=== PATIENT | male | born 1970 | race Two or more races ===

== ENCOUNTER 2021-03-18 13:59 | Inpatient (IN) ==
[2021-03-18 14:23] VITALS: BMI 30.9
[2021-03-18] MEDS ORDERED: NS 1000 ML 1,000 ML IV ONE (14:30)
--- NOTE | 2021-03-18 14:31 | DR.GENAD ---
HPI Time Seen Time Seen by Provider: 03/18/21 14:30 PCP Primary Care Physician: dewayne HPI Comment HPI Comment: Hx via friend who acts as hoop cutter; persistent cough, congestion with decrease in appetite, abd pain and diarrhea for the past week; he's now dizzy and weak and feels like he will pass out; not sure re: exposure to covid. Complaint/Symptoms Chief Complaint:: PT C/O 1 WEEK HISTORY OF DECREASED PO APPETITE, COUGHING, DIARRHEA. PT C/O FEELING DIZZY AND FEELING LIKE HE WILL PASS OUT. COVID-19 Coronavirus risk:travel/contact w/high risk person: No Has patient experienced Coronavirus symptoms: No Coronavirus symptoms experienced: Fever, Coughing and Shortness of Breath Mode of Arrival Mode of Arrival: Ambulatory Timing Onset of Chief Complaint: 03/13/21 PMH PMH Past Surgical History: No Family History History of Family Medical Conditions: No Social History Does patient currently use any type of tobacco product: No Type of Tobacco Use: None Does any household member use tobacco: No Alcohol Use: None Do you use any recreational Drugs:: No Travel Risk Coronavirus risk:travel/contact w/high risk person: No Has patient experienced Coronavirus symptoms: No Coronavirus symptoms experienced: Fever, Coughing and Shortness of Breath Infectious screening In the last 2 months have you had wt loss of >10#?: NO Have you had fever, night sweats or hemotysis?: No Have you traveled outside the country in the last 6 months?: No Isolation: Droplet ROS Review of Systems Eyes: No Symptoms Reported ENTM: No Symptoms Reported Cardiovascular: No Symptoms Reported Genitourinary: No Symptoms Reported Integumentary: No Symptoms Reported Hematologic/Lymphatic: No Symptoms Reported Endocrine: No Symptoms Reported Psychiatric: No Symptoms Reported PE Vital Signs Vitals: Temperature 100.9 F Pulse Rate 102 Respiratory Rate 26 Blood Pressure 132/86 O2 Sat by Pulse Oximetry 93 General Limitations: Language Barrier General Appearance: Alert and In No Apparent Distress Head Head Exam: Normal Inspection Eyes Eye exam: Normal Appearance ENT ENT Exam: Normal Exam External Ear Exam: Normal External Inspection TM/Canal Exam: Bilateral: Normal Nose Exam: Normal Nose Exam Mouth Exam: Normal Inspection Throat Exam: Normal Inspection Neck Neck Exam: Normal Inspection Chest Chest Inspection: Normal Inspection Respiratory Respiratory Exam: Normal Lung Sounds Bilat Respiratory Exam: Bilateral: Clear to Auscultation Cardiovascular Cardiovascular Exam: Regular Rate and Normal Rhythm Abdominal Exam Abdominal Exam: Normal Inspection, Normal Bowel Sounds, Soft and Tenderness Abdominal Tenderness: Diffuse and Mild Extremities Extremities Exam: Normal Inspection Back Back Exam: Normal Inspection Neurologic Neurological Exam: Alert and Oriented X3 Psychiatric Psychiatric Exam: Normal Affect and Normal Mood Skin Skin Exam: Warm, Dry, Intact and Normal Color MDM Differential Diagnosis Differential Diagnosis: covid, bronchitis, viral uri COURSE Treatment Treatment: not a candidate for regenCov due to crp and oxygen 53 Consultation Call Returned: 19:17 Consultation Comments: Kaylah accepts admission for Dr Guo and will put in a dmission orders ROR Labs Reviewed Laboratory Results Reviewed?: Yes Result Diagrams: 03/18/21 14:43 03/18/21 14:43 Laboratory: WBC 7.8 X10^3/uL (3.6-10.0) 03/18/21 14:43 RBC 5.11 X10^6/uL (4.7-6.0) 03/18/21 14:43 Hgb 16.1 g/dL (13.5-18.0) 03/18/21 14:43 Hct 45.8 % (42.0-54.0) 03/18/21 14:43 MCV 89.7 fL (80.0-100.0) 03/18/21 14:43 MCH 31.6 pg (27.0-34.0) 03/18/21 14:43 MCHC 35.2 g/dL (33.0-35.0) H 03/18/21 14:43 RDW 13.0 % (11.6-16.5) 03/18/21 14:43 Plt Count 144 X10^3/uL (150.0-450.0) L 03/18/21 14:43 MPV 8.8 fL (7.4-11.0) 03/18/21 14:43 Neut % (Auto) 72.1 % (42.0-75.0) 03/18/21 14:43 Lymph % (Auto) 19.1 % (21.0-51.0) L 03/18/21 14:43 Person % (Auto) 8.3 % (0.0-13.0) 03/18/21 14:43 Eos % (Auto) 0.0 % (0.9-2.9) L 03/18/21 14:43 Baso % (Auto) 0.5 % (0.2-1.0) 03/18/21 14:43 Neut # (Auto) 5.6 x10^3/uL (2.2-4.8) H 03/18/21 14:43 Lymph # (Auto) 1.5 X10^3/uL (1.3-2.9) 03/18/21 14:43 Person # (Auto) 0.6 x10^3/uL (0.3-0.8) 03/18/21 14:43 Eos # (Auto) 0.0 x10^3/uL (0.0-0.2) 03/18/21 14:43 Baso # (Auto) 0.0 X10^3/uL (0.0-0.1) 03/18/21 14:43 Absolute Nucleated RBC 0.1 /100WBC 03/18/21 14:43 D-Dimer 13.40 ug/ml (0.0-0.57) H* 03/18/21 14:43 Sample Site Lr 03/18/21 14:33 ABG pH 7.490 (7.35-7.45) H 03/18/21 14:33 ABG pCO2 38.0 mmHg (35.0-45.0) 03/18/21 14:33 ABG pO2 53.0 mmHg (80.0-100.0) L 03/18/21 14:33 ABG HCO3 29.0 mmol/L (22-26) H 03/18/21 14:33 ABG O2 Saturation 90.0 % (90-100) 03/18/21 14:33 ABG Base Excess 5.4 mmol/L (-2.0-2.0) H 03/18/21 14:33 Joe Test Pos 03/18/21 14:33 A-a Gradient 49.0 mmHg 03/18/21 14:33 FiO2 21.0 03/18/21 14:33 Blood Gas Comments Pt ivonne well llj associate professor of music 03/18/21 14:33 Sodium 134 mmol/L (136-145) L 03/18/21 14:43 Corrected Sodium 134 mmol/L (136-145) L 03/18/21 14:43 Potassium 3.4 mmol/L (3.5-5.1) L 03/18/21 14:43 Chloride 95 mmol/L (98-107) L 03/18/21 14:43 Carbon Dioxide 28.1 mmol/L (21-32) 03/18/21 14:43 BUN 16 mg/dL (7-18) 03/18/21 14:43 Creatinine 0.96 mg/dL (0.70-1.30) 03/18/21 14:43 Est GFR (MDRD) Af Amer > 60 (>60) 03/18/21 14:43 Est GFR (MDRD) Non-Af > 60 (>60) 03/18/21 14:43 Glucose 120 mg/dL (65-99) H 03/18/21 14:43 Calcium 8.3 mg/dL (8.5-10.1) L 03/18/21 14:43 Corrected Calcium 8.9 mg/dL (8.5-10.1) 03/18/21 14:43 Ferritin 1388 ng/mL (26-388) H 03/18/21 14:43 Total Bilirubin 1.00 mg/dL (0.2-1.0) 03/18/21 14:43 AST 34 Units/L (15-37) 03/18/21 14:43 ALT 44 Units/L (12-78) 03/18/21 14:43 Alkaline Phosphatase 88 Units/L (46-116) 03/18/21 14:43 C-Reactive Protein 99.30 mg/L (0-3.0) H 03/18/21 14:43 B-Natriuretic Peptide < 5.0 pg/mL (0-79) 03/18/21 14:43 Total Protein 8.0 g/dL (6.4-8.2) 03/18/21 14:43 Albumin 3.3 g/dL (3.4-5.0) L 03/18/21 14:43 Globulin 4.7 g/dL (2.5-4.5) H 03/18/21 14:43 Albumin/Globulin Ratio 0.7 Ratio (1.1-2.1) L 03/18/21 14:43 SARS CoV-2 RNA Rapid ELIZABETH Positive (NEGATIVE) A 03/18/21 14:46 XRAY XRAY Interpreted by: Radiologist X-ray Results: ct chest: 1. Motion limited study with findings suspicious for scattered small distal pulmonary emboli. Recommend repeating study when patient is better able to hold his breath. 2. Pulmonary findings typical of COVID-19. 3. Additional findings as above. cxr: No acute cardiopulmonary disease. Opioid Opioid Risk Tool Age (Ranjan box if 16-45): No History of Preadolescent Sexual Abuse: No Total: 0 Total Score Risk Category: Low Risk Copyright: [facility] predicting aberrant behaviors Diagnosis Discharge Problem: COVID-19, Hypokalemia, Bilateral pulmonary embolism Instructions Forms: Precautions for COVID19 Patient Portal Social Distancing
[2021-03-18] MEDS ORDERED: NS 1000 ML 1,000 ML ONE (14:43)
[2021-03-18 14:51] LABS: BASOPHILS % (AUTO) 0.5 % (0.2-1.0); HEMATOCRIT 45.8 % (42.0-54.0); HEMOGLOBIN 16.1 g/dL (13.5-18.0); LYMPHOCYTES # (AUTO) 1.5 X10^3/uL (1.3-2.9); LYMPHOCYTES % (AUTO) 19.1 % (21.0-51.0); MEAN CORPUSCULAR HEMOGLOBIN 31.6 pg (27.0-34.0); MEAN CORPUSCULAR HGB CONC 35.2 g/dL (33.0-35.0); MEAN CORPUSCULAR VOLUME 89.7 fL (80.0-100.0); MEAN PLATELET VOLUME 8.8 fL (7.4-11.0); MONOCYTES # (AUTO) 0.6 x10^3/uL (0.3-0.8); MONOCYTES % (AUTO) 8.3 % (0.0-13.0); NEUTROPHILS # (AUTO) 5.6 x10^3/uL (2.2-4.8); NEUTROPHILS % (AUTO) 72.1 % (42.0-75.0); PLATELET COUNT 144 X10^3/uL (150.0-450.0); RED BLOOD COUNT 5.11 X10^6/uL (4.7-6.0); WHITE BLOOD COUNT 7.8 X10^3/uL (3.6-10.0)
[2021-03-18 15:04] LABS: ABG ALLEN TEST POS; ABG BASE EXCESS 5.4 mmol/L (-2.0-2.0)
[2021-03-18 15:05] LABS: ALANINE AMINOTRANSFERASE 44 Units/L (12-78); ALBUMIN 3.3 g/dL (3.4-5.0); ALKALINE PHOSPHATASE 88 Units/L (46-116); ASPARTATE AMINO TRANSFERASE 34 Units/L (15-37); BLOOD UREA NITROGEN 16 mg/dL (7-18); CALCIUM 8.3 mg/dL (8.5-10.1); CARBON DIOXIDE 28.1 mmol/L (21-32); CHLORIDE 95 mmol/L (98-107); COR CA(FOR HYPOALB) 8.9 mg/dL (8.5-10.1); COR NA(FOR HYPERGLY) 134 mmol/L (136-145); CREATININE 0.96 mg/dL (0.70-1.30); SODIUM 134 mmol/L (136-145); eGFR NON BLACK RACES > 60 (>60)
--- NOTE | 2021-03-18 15:29 | RAD ---
HISTORYPT C/O 1 WEEK HISTORY OF DECREASED PO APPETITE, COUGHING, DIARRHEA. PT C/O FEELING DIZZY AND FEELING LIKE HE WILL PASS OUT. No medical hxSTUDYCHEST, 1 VIEWCOMPARISONNoneFINDINGSThe trachea is midline. The cardiac silhouette is unremarkable. The lungs are clear without focal infiltrate or effusion. There is mild interstitial prominence in the right lung base either atelectasis or minimal chronic changes of fibrosis but no definite infiltrates or effusions are observed. The bony thorax is unremarkable.IMPRESSIONNo acute cardiopulmonary disease.Electronically signed by: IVANIA FORBES (Mar 18, 2021 15:27:53)
[2021-03-18] MEDS ORDERED: NS 100 ML IV 100 ML ONE (16:00)
[2021-03-18] MEDS ORDERED: SOLU-Medrol 125 MG VIAL IVP ONE (16:06)
--- NOTE | 2021-03-18 16:20 | CT ---
HISTORYCOVID POSITIVE, COUGH, ELEVATED D DIMERSTUDYCTA [id number]/2021 chest radiographTECHNIQUEMultiple axial images of the chest were obtained from the thoracic inlet to the upper abdomen after the administration of IV contrast. 3D reconstructions utilizing axial MIPS imaging was performed and reviewed. Dose reduction techniques including Automated Exposure Control (AEC) and adjustment of mA and kV were utilized.FINDINGSExam is limited by respiratory motion. No central or proximal pulmonary artery filling defects are seen however there are a few small branch filling defects in the lower lobes greater than expected for the degree of motion suspicious for small emboli. Mild right hilar lymphadenopathy is present. The lungs show multifocal ground-glass opacities typical of COVID-19. No pleural or pericardial effusion or pneumothorax. Limited views upper abdomen show subcentimeter left hepatic lobe hypodensity incompletely characterized but probably cyst. No acute osseous finding.IMPRESSION1. Motion limited study with findings suspicious for scattered small distal pulmonary emboli. Recommend repeating study when patient is better able to hold his breath.2. Pulmonary findings typical of COVID-19.3. Additional findings as above.Electronically signed by: Rubens Mari (Mar 18, 2021 16:18:24)
[2021-03-18] MEDS ORDERED: ZITHROMAX INJ 500 MG VIAL IV ONE (16:29)
[2021-03-18] MEDS ORDERED: NS 250 ML IV 250 ML IV ONE ×2 (16:29→20:29)
[2021-03-18] MEDS ORDERED: SOLU-Medrol 125 MG VIAL ONE (16:29)
[2021-03-18] MEDS: ZITHROMAX INJ 500 MG VIAL 500 MG in NS 250 ML IV 250 ML IV SCH (16:41)
[2021-03-18] MEDS ORDERED: LOVENOX INJ 120 MG SYR SC STA (17:26)
[2021-03-18] MEDS ORDERED: LOVENOX INJ 120 MG SYR SC ONE (17:58)
[2021-03-18] MEDS ORDERED: TUSSIONEX PENNKINETIC SUSP PO PRN (20:02)
[2021-03-18] MEDS ORDERED: HumuLIN R SUBCUT PRN (20:02)
[2021-03-18] MEDS ORDERED: ROBITUSSIN DM PO PRN (20:02)
[2021-03-18] MEDS ORDERED: REMDESIVIR 200 MG in NS 250 ML IV 250 ML IV ONE (20:02)
[2021-03-18] MEDS ORDERED: HEPARIN SODIUM IN D5W 25,000 UNITS/500 ML BAG ONE (20:04)
[2021-03-18] MEDS: HEPARIN SODIUM IN D5W 25,000 UNITS/500 ML BAG IV PRN (20:16)
[2021-03-18] MEDS ORDERED: ACCUNEB 1.25 MG NEBULE ONE (20:25)
[2021-03-18] MEDS ORDERED: PULMICORT NEB TX 0.5 MG NEB ONE (20:25)
[2021-03-18] MEDS ORDERED: BROVANA ONE (20:25)
[2021-03-18] MEDS ORDERED: THIAMINE HCL INJ ONE (20:28)
[2021-03-18] MEDS ORDERED: PROTONIX TAB 40 MG PO ONE (20:28)
[2021-03-18] MEDS ORDERED: LIPITOR TAB 80 MG ONE (20:28)
[2021-03-18] MEDS ORDERED: FLUVOXAMINE MALEATE ONE (20:29)
[2021-03-18] MEDS ORDERED: SOLU-Medrol 40 MG VIAL ONE (20:29)
[2021-03-18] MEDS ORDERED: PEPCID TAB 40 MG ONE (20:29)
[2021-03-18] MEDS ORDERED: REMDESIVIR IV ONE (20:29)
[2021-03-18] MEDS ORDERED: TESSALON PERLES PO ONE (20:29)
[2021-03-18] MEDS ORDERED: ASCORBIC ACID INJ MULTI-DOSE VIAL IV ONE (20:30)
[2021-03-18] MEDS ORDERED: NS 50 ML IV 50 ML IV ONE (20:30)
[2021-03-18] MEDS ORDERED: NS 1/2 1000 ML IV 1,000 ML IV ONE (20:30)
[2021-03-18 20:54] LABS: ERYTHROCYTE SEDIMENTATION RATE 27 MM/HOUR (0-15)
[2021-03-18] MEDS: BROVANA IN SCH (21:00)
[2021-03-18] MEDS ORDERED: PHARMACY CONSULT - IVERMECTIN XX SCH (21:00)
[2021-03-18] MEDS: ACCUNEB 1.25 MG NEBULE NEB SCH (21:00)
[2021-03-18] MEDS: PULMICORT NEB TX 0.5 MG NEB SCH (21:00)
[2021-03-18] MEDS ORDERED: PERIACTIN TAB 4 MG ONE (21:18)
[2021-03-18 21:22] LABS: CKMB % 0.1 % (<4); CREATINE KINASE 713 Units/L (39-308); TROPONIN I < 0.02 ng/mL (0-1.5)
[2021-03-18] MEDS: PERIACTIN TAB 4 MG PO SCH (22:22)
[2021-03-18] MEDS: SOLU-Medrol 40 MG VIAL IVP SCH (22:22)
[2021-03-18] MEDS: TESSALON PERLES PO SCH (22:22)
[2021-03-18] MEDS: ASCORBIC ACID INJ MULTI-DOSE VIAL 1,500 MG in NS 50 ML IV 50 ML IV SCH (22:22)
[2021-03-18] MEDS: SINGULAIR TAB 10 MG PO SCH (22:23)
[2021-03-18] MEDS: PEPCID TAB 40 MG PO SCH (22:23)
[2021-03-18] MEDS: THIAMINE HCL INJ IVP SCH (22:23)
[2021-03-18] MEDS: PROTONIX TAB 40 MG PO SCH (22:23)
[2021-03-18] MEDS: NS 1/2 1000 ML IV 1,000 ML IV SCH (22:24)
[2021-03-18] MEDS: MELATONIN PO SCH (22:24)
[2021-03-18] MEDS: LIPITOR TAB 80 MG PO SCH (22:24)
[2021-03-18] MEDS: FLUVOXAMINE MALEATE PO SCH (22:25)
[2021-03-18] MEDS ORDERED: LOVENOX INJ 30 MG SYR SC ONE (22:35)
[2021-03-19] MEDS: IVERMECTIN PO SCH ×2 (00:30→21:45)
[2021-03-19] MEDS: ASCORBIC ACID INJ MULTI-DOSE VIAL 1,500 MG in NS 50 ML IV 50 ML IV SCH ×4 (03:00→21:49)
[2021-03-19] MEDS ORDERED: TESSALON PERLES PO ONE ×3 (03:51→19:55)
[2021-03-19] MEDS ORDERED: SOLU-Medrol 40 MG VIAL ONE ×4 (03:52→19:58)
[2021-03-19] MEDS ORDERED: NS 50 ML IV 50 ML IV ONE (03:52)
[2021-03-19] MEDS ORDERED: ASCORBIC ACID INJ MULTI-DOSE VIAL IV ONE ×3 (03:53→12:41)
[2021-03-19] MEDS: TESSALON PERLES PO SCH ×3 (05:19→21:48)
[2021-03-19] MEDS: SOLU-Medrol 40 MG VIAL IVP SCH ×3 (05:19→21:48)
[2021-03-19] MEDS: PERIACTIN TAB 4 MG PO SCH ×3 (05:20→21:48)
[2021-03-19 05:55] LABS: ABG BASE EXCESS 3.2 mmol/L (-2.0-2.0); ABG HCO3 27.9 mmol/L (22-26)
[2021-03-19 06:19] LABS: BASOPHILS % (AUTO) 0.2 % (0.2-1.0); HEMATOCRIT 42.6 % (42.0-54.0); HEMOGLOBIN 15.1 g/dL (13.5-18.0); LYMPHOCYTES # (AUTO) 1.2 X10^3/uL (1.3-2.9); LYMPHOCYTES % (AUTO) 16.6 % (21.0-51.0); MEAN CORPUSCULAR HEMOGLOBIN 31.4 pg (27.0-34.0); MEAN CORPUSCULAR HGB CONC 35.4 g/dL (33.0-35.0); MEAN CORPUSCULAR VOLUME 88.5 fL (80.0-100.0); MEAN PLATELET VOLUME 9.5 fL (7.4-11.0); MONOCYTES # (AUTO) 0.3 x10^3/uL (0.3-0.8); MONOCYTES % (AUTO) 3.6 % (0.0-13.0); NEUTROPHILS # (AUTO) 5.8 x10^3/uL (2.2-4.8); NEUTROPHILS % (AUTO) 79.6 % (42.0-75.0); PLATELET COUNT 143 X10^3/uL (150.0-450.0); RED BLOOD COUNT 4.81 X10^6/uL (4.7-6.0); RED CELL DISTRIBUTION WIDTH 12.9 % (11.6-16.5); WHITE BLOOD COUNT 7.3 X10^3/uL (3.6-10.0)
[2021-03-19 06:27] LABS: ALANINE AMINOTRANSFERASE 41 Units/L (12-78); ALBUMIN 2.8 g/dL (3.4-5.0); ALKALINE PHOSPHATASE 75 Units/L (46-116); ASPARTATE AMINO TRANSFERASE 32 Units/L (15-37); BLOOD UREA NITROGEN 16 mg/dL (7-18); CALCIUM 7.9 mg/dL (8.5-10.1); CARBON DIOXIDE 28.1 mmol/L (21-32); CHLORIDE 101 mmol/L (98-107); COR CA(FOR HYPOALB) 8.9 mg/dL (8.5-10.1); COR NA(FOR HYPERGLY) 139 mmol/L (136-145); CREATININE 0.77 mg/dL (0.70-1.30); SODIUM 138 mmol/L (136-145); TOTAL PROTEIN 7.1 g/dL (6.4-8.2); eGFR NON BLACK RACES > 60 (>60)
--- NOTE | 2021-03-19 07:02 | RAD ---
HISTORYCOVID SOBSTUDYPortable AP [id number]/28/2021FINDINGSStable normal heart size. There is slight interval progression of diffuse bilateral infiltrates without evidence for focal consolidation, pleural fluid or pneumothorax.IMPRESSIONSlight interval increase in bilateral infiltrates compatible with atypical pneumonia pattern.Electronically signed by: CHAYA RÍOS (Mar 19, 2021 07:00:15)
[2021-03-19] MEDS ORDERED: PEPCID TAB 40 MG ONE ×2 (07:41→19:55)
[2021-03-19] MEDS ORDERED: VITAMIN D3 125 mcg (5,000 UNITS) ONE (07:41)
[2021-03-19] MEDS ORDERED: FLUVOXAMINE MALEATE ONE ×2 (07:41→19:55)
[2021-03-19] MEDS ORDERED: PROTONIX TAB 40 MG PO ONE ×2 (07:41→19:54)
[2021-03-19] MEDS ORDERED: ZyrTEC TAB 10 MG ONE (07:41)
[2021-03-19] MEDS ORDERED: THIAMINE HCL INJ ONE ×2 (07:41→19:54)
[2021-03-19] MEDS ORDERED: ZINC SULFATE ONE (07:41)
[2021-03-19] MEDS ORDERED: NS 100 ML IV 100 ML ONE ×2 (07:42→12:41)
[2021-03-19] MEDS ORDERED: LEVAQUIN PREMIX IV 500 MG 500 MG/100 ML BAG IV ONE (07:42)
[2021-03-19] MEDS: FLUVOXAMINE MALEATE PO SCH ×2 (08:41→21:46)
[2021-03-19] MEDS: AVODART PO SCH (08:41)
[2021-03-19] MEDS: LEVAQUIN PREMIX IV 500 MG 500 MG/100 ML BAG IV SCH (08:42)
[2021-03-19] MEDS: PEPCID TAB 40 MG PO SCH ×2 (08:42→21:47)
[2021-03-19] MEDS: PROTONIX TAB 40 MG PO SCH ×2 (08:42→21:45)
[2021-03-19] MEDS: THIAMINE HCL INJ IVP SCH ×2 (08:43→21:45)
[2021-03-19] MEDS: VITAMIN D3 125 mcg (5,000 UNITS) PO SCH (08:44)
[2021-03-19] MEDS: ZyrTEC TAB 10 MG PO SCH (08:45)
[2021-03-19] MEDS: ZINC SULFATE PO SCH (08:45)
[2021-03-19] MEDS ORDERED: POTASSIUM CHL 40 MEQ/NS 0.45% 500 ML IV PRN (08:48)
[2021-03-19] MEDS ORDERED: POTASSIUM CHLORIDE LIQ 20 MEQ UDC PO PRN (08:48)
[2021-03-19] MEDS ORDERED: KLOR-CON PO PRN (08:48)
[2021-03-19] MEDS ORDERED: MICRO K EXTEN CAP 10 MEQ PO PRN (08:48)
[2021-03-19] MEDS ORDERED: K-RIDER 10 MEQ/NS 100 ML 10 MEQ/100 ML BAG IV PRN (08:48)
[2021-03-19] MEDS ORDERED: POTASSIUM CHL 60 MEQ/NS 0.45% 500 ML IV PRN (08:48)
[2021-03-19] MEDS ORDERED: K-DUR TAB 20 MEQ PO ONE (09:17)
[2021-03-19] MEDS: BROVANA IN SCH ×2 (09:34→20:46)
[2021-03-19] MEDS: PULMICORT NEB TX 0.5 MG NEB SCH ×2 (09:34→20:46)
[2021-03-19] MEDS: ACCUNEB 1.25 MG NEBULE NEB SCH (09:34)
[2021-03-19] MEDS: K-DUR TAB 20 MEQ PO PRN (09:52)
[2021-03-19] MEDS: NS 1/2 1000 ML IV 1,000 ML IV SCH ×3 (10:11→23:46)
[2021-03-19] MEDS ORDERED: REMDESIVIR 100 MG in NS 100 ML IV + SPIKE MINIBAG* 120 ML IV ONE (10:57)
[2021-03-19] MEDS ORDERED: REMDESIVIR IV ONE ×2 (11:15→19:56)
[2021-03-19] MEDS ORDERED: NS 250 ML IV 0 ML IV ONE (11:16)
--- NOTE | 2021-03-19 11:47 | DR.H&P ---
H&P - History & Physical for Day of: H&P Date: 03/18/21 - Chief Complaint Chief Complaint: COUGH, SOB, ABDOMINAL PAIN, DIARRHEA, WEAKNESS, DIZZINESS - History of Present Illness History of Present Illness: IS A 51 YEAR OLD MALE. HE HAS AN AIRPLANE PILOT IN THE ROOM. HE PRESENTED TO THE ER WITH COMPLAINTS OF A NON- PRODUCTIVE COUGH, SHORTNESS OF BREATH, ABDOMINAL PAIN, DIARRHEA, WEAKNESS, DECREASED APPETITE, AND DIZZINESS X 1 WEEK. HE REPORTS THAT HE HAS NO PAST MEDICAL HISTORY THAT HE IS AWARE OF AND DOES NOT TAKE ANY MEDICATIONS. AUSCULTATION OF BILATERAL LUNG RUIZ REVEALED DIMINISHED LUNG SOUNDS THROUGHOUT. ON ARRIVAL TO THE ER, VITALS WERE [id number]-131/89. LABS WERE OBTAINED. ABNORMAL LAB VALUES INCLUDED THE FOLLOWING: PLT COUNT 144, D- DIMER 13.40, SODIUM 134, POTASSIUM 3.4, CHLORIDE 95, GLUCOSE 120, CALCIUM 8.3, FERRITIN 1388, ALBUMIN 3.3, GLOBULIN 4.7, CRP 99.30. COVID-19 POSITIVE. AN ABG WAS OBTAINED AND REVEALED: PH 7.490, PC02 38, P02 53, HC03 29, 02 SATURATION 90, BASE EXCESS 5.4, A-A GRADIENT 49, FI02 21.0. BLOOD CULTURES WERE SET UP. CHEST XRAY WAS OBTAINED AND REVEALED: The trachea is midline. The cardiac silhouette is unremarkable. The lungs are clear without focal infiltrate or effusion. There is mild interstitial prominence in the right lung base either atelectasis or minimal chronic changes of fibrosis but no definite infiltrates or effusions are observed. The bony thorax is unremarkable. CHEST CTA OBTAINED AND REVEALED: No central or proximal pulmonary artery filling defects are seen however there are a few small branch filling defects in the lower lobes greater than expected for the degree of motion suspicious for small emboli. Mild right hilar lymphadenopathy is present. The lungs show multifocal ground-glass opacities typical of COVID-19. No pleural or pericardial effusion or pneumothorax. Limited views upper abdomen show subcentimeter left hepatic lobe hypodensity incompletely characterized but probably cyst. No acute osseous finding. EKG REVEALED: SINUS RHYTHM WITH HR 84. IN THE ER, HE WAS GIVEN A NORMAL SALINE BOLUS, ZOSYN 3.375G IV X 1, SOLU-MEDROL 125MG IV X 1, LOVENOX 120MG SC X 1, REMDESIVIR 200MG IV X 1. HE WAS ADMITTED TO THE HOSPITAL FOR FURTHER EVALUATION AND TREATMENT OF PNEUMONIA DUE TO COVID-19, BILATERAL PULMONARY EMBOLI, HYPOKALEMIA, AND HYPOXIA. HE WAS STARTED ON NS AT 75 ML/HR, HEPERIN DRIP PER PROTOCOL, LEVAQUIN 500MG IV DAILY, REMDESIVIR 100MG IV DAILY, ASCORBIC ACID 1500MG IV Q6H, ALBUTEROL NEBS QID, PULMICORT NEBS BID, BROVANA INHALER BID, SOLU-MEDROL 80MG IV Q8H, FLUVOXAMINE 50MG PO BID, AVODART 0.5MG PO DAILY, CYPROHEPTADINE 8MG PO TID, LIPITOR 80MG PO HS, TESSALON PERLES 200MG PO TID, TUSSIONEX 5ML PO Q12H PRN, CETIRIZINE 10MG PO DAILY, IVERMECTIN, PEPCID 40MG PO BID, ROBITUSSIN DM 10ML PO QID PRN, HUMULIN R SLIDING SCALE, SINGULAIR 10MG PO HS, PROTONIX 40MG PO BID, MILK OF MAGNESIA 30ML PO BID, COLACE 100MG PO BID, THIAMINE 200MG IV BID, AND ZINC SULFATE 220MG PO BID. OTHERWISE, WE PLAN TO FOLLOW UP WITH AM LABS AND CHEST XRAY AND CONTINUE TO MONITOR. WE WILL ALSO OBTAIN AN ECHO. TIME SPENT ON CLINICAL ASSESSMENT, REVIEWING LABS AND IMAGING, DECISION MAKING, AND DOCUMENTATION GREATER THAN 75 MINUTES. - Past Surgical History Surgical History: Unknown - Social History Does patient currently use any type of tobacco product: No Type of Tobacco Use: None Does any household member use tobacco: No Alcohol Use: None Drug Use: None - Medications Home Medications: No Known Drug Allergies Allergy (Verified 03/18/21 14:57) CONTINUE taking the following medications NK 03/18/21 [History] - Review of Systems Constitutional: Fever, Weakness, Malaise, Other (DECREASED APPETITE ) Eyes: No Symptoms Reported ENT: No Symptoms Reported Respiratory: See HPI, Cough, Shortness of Breath, SOB with Excertion Cardiovascular: Light Headedness Gastrointestinal: Abdominal Pain, Diarrhea Genitourinary: No Symptoms Reported Musculoskeletal: No Symptoms Reported Skin: No Symptoms Reported Neurological: Weakness - Physical Exam Vital Signs: Temperature 98.1 F Pulse Rate [Left Brachial] 106 Pulse Rate 75 Respiratory Rate 20 Blood Pressure [Left Arm] 123/76 Blood Pressure 111/70 O2 Sat by Pulse Oximetry 92 Oriented: Normal Eyes: Normal Ear: Normal Nose: Normal Throat: Normal Respiratory: Diminished Throughout Cardiovascular: Tachycardia : Normal Auscultation: Bowel Sounds: Normal Palpation: Normal Tenderness: Normal Skin: Normal Musculoskeletal: Normal Psychiatric: Normal Mood Description: Calm Affect: Normal Speech Pattern: Clear - Assessment/Plan (1) Pneumonia due to COVID-19 virus Status: Acute Plan: ADMIT, SUPPLEMENTAL OXYGEN, NS AT 75 ML/HR, HEPERIN DRIP PER PROTOCOL, LEVAQUIN 500MG IV DAILY, REMDESIVIR 100MG IV DAILY, ASCORBIC ACID 1500MG IV Q6H, ALBUTEROL NEBS QID, PULMICORT NEBS BID, BROVANA INHALER BID, SOLU-MEDROL 80MG IV Q8H, FLUVOXAMINE 50MG PO BID, AVODART 0.5MG PO DAILY, CYPROHEPTADINE 8MG PO TID, LIPITOR 80MG PO HS, TESSALON PERLES 200MG PO TID, TUSSIONEX 5ML PO Q12H PRN, CETIRIZINE 10MG PO DAILY, IVERMECTIN, PEPCID 40MG PO BID, ROBITUSSIN DM 10ML PO QID PRN, HUMULIN R SLIDING SCALE, SINGULAIR 10MG PO HS, PROTONIX 40MG PO BID, MILK OF MAGNESIA 30ML PO BID, COLACE 100MG PO BID, THIAMINE 200MG IV BID, AND ZINC SULFATE 220MG PO BID. (2) Bilateral pulmonary embolism Status: Acute (3) Hypoxia Status: Acute (4) Hypokalemia Status: Acute - Allergies Allergies/Adverse Reactions: Allergies Allergy/AdvReac Type Severity Reaction Status Date / Time No Known Drug Allergies Allergy Verified 03/18/21 14:57
[2021-03-19] MEDS ORDERED: PERIACTIN TAB 4 MG ONE ×2 (12:41→19:55)
[2021-03-19] MEDS ORDERED: ZITHROMAX INJ 500 MG VIAL IV ONE (14:53)
[2021-03-19] MEDS ORDERED: NS 250 ML IV 250 ML IV ONE (14:53)
[2021-03-19] MEDS: ZITHROMAX INJ 500 MG VIAL 500 MG in NS 250 ML IV 250 ML IV SCH (15:33)
[2021-03-19 16:45] LABS: MAGNESIUM 2.4 mg/dL (1.7-2.9)
[2021-03-19] MEDS ORDERED: IVERMECTIN ONE (19:54)
[2021-03-19] MEDS ORDERED: MELATONIN ONE (19:55)
[2021-03-19] MEDS ORDERED: LIPITOR TAB 80 MG ONE (19:55)
[2021-03-19] MEDS ORDERED: NS 100 ML IV + SPIKE MINIBAG* 100 ML IV ONE (19:56)
[2021-03-19] MEDS ORDERED: NS 1/2 1000 ML IV 1,000 ML IV ONE (21:19)
[2021-03-19] MEDS: LIPITOR TAB 80 MG PO SCH (21:46)
[2021-03-19] MEDS: MELATONIN PO SCH (21:47)
[2021-03-19] MEDS: REMDESIVIR 100 MG in NS 250 ML IV 250 ML IV SCH (21:48)
[2021-03-19] MEDS: SNACK - Diabetic Appropriate PO SCH (21:49)
[2021-03-19] MEDS: SINGULAIR TAB 10 MG PO SCH (21:49)
[2021-03-20] MEDS ORDERED: NS 100 ML IV 100 ML ONE (02:57)
[2021-03-20] MEDS ORDERED: ASCORBIC ACID INJ MULTI-DOSE VIAL IV ONE ×4 (02:57→21:53)
[2021-03-20] MEDS: ASCORBIC ACID INJ MULTI-DOSE VIAL 1,500 MG in NS 50 ML IV 50 ML IV SCH ×5 (03:19→22:12)
[2021-03-20] MEDS ORDERED: TESSALON PERLES PO ONE ×3 (05:05→21:47)
[2021-03-20] MEDS ORDERED: SOLU-Medrol 125 MG VIAL ONE (05:05)
[2021-03-20] MEDS ORDERED: PERIACTIN TAB 4 MG ONE ×2 (05:05→21:47)
[2021-03-20] MEDS ORDERED: HEPARIN SODIUM IN D5W 25,000 UNITS/500 ML BAG ONE (05:15)
[2021-03-20] MEDS: TESSALON PERLES PO SCH ×3 (05:34→22:17)
[2021-03-20] MEDS: PERIACTIN TAB 4 MG PO SCH ×3 (05:34→22:17)
[2021-03-20] MEDS: HEPARIN SODIUM IN D5W 25,000 UNITS/500 ML BAG IV PRN ×3 (05:35→14:46)
[2021-03-20] MEDS: SOLU-Medrol 40 MG VIAL IVP SCH (05:36)
[2021-03-20 05:54] LABS: ABG ALLEN TEST POS; ABG BASE EXCESS 5.9 mmol/L (-2.0-2.0); ABG HCO3 29.7 mmol/L (22-26)
[2021-03-20 07:11] LABS: ALANINE AMINOTRANSFERASE 43 Units/L (12-78); ALBUMIN 2.5 g/dL (3.4-5.0); ALKALINE PHOSPHATASE 68 Units/L (46-116); ASPARTATE AMINO TRANSFERASE 27 Units/L (15-37); BLOOD UREA NITROGEN 16 mg/dL (7-18); CALCIUM 7.6 mg/dL (8.5-10.1); CARBON DIOXIDE 30.2 mmol/L (21-32); CHLORIDE 106 mmol/L (98-107); COR CA(FOR HYPOALB) 8.8 mg/dL (8.5-10.1); COR NA(FOR HYPERGLY) 145 mmol/L (136-145); CREATININE 0.77 mg/dL (0.70-1.30); SODIUM 144 mmol/L (136-145); TOTAL PROTEIN 6.3 g/dL (6.4-8.2); eGFR NON BLACK RACES > 60 (>60)
[2021-03-20 07:25] LABS: BASOPHILS % (AUTO) 0.1 % (0.2-1.0); HEMATOCRIT 40.9 % (42.0-54.0); HEMOGLOBIN 14.2 g/dL (13.5-18.0); LYMPHOCYTES # (AUTO) 1.5 X10^3/uL (1.3-2.9); LYMPHOCYTES % (AUTO) 8.1 % (21.0-51.0); MEAN CORPUSCULAR HEMOGLOBIN 31.3 pg (27.0-34.0); MEAN CORPUSCULAR HGB CONC 34.8 g/dL (33.0-35.0); MEAN CORPUSCULAR VOLUME 89.9 fL (80.0-100.0); MEAN PLATELET VOLUME 9.8 fL (7.4-11.0); MONOCYTES # (AUTO) 0.9 x10^3/uL (0.3-0.8); NEUTROPHILS # (AUTO) 15.8 x10^3/uL (2.2-4.8); NEUTROPHILS % (AUTO) 86.8 % (42.0-75.0); PLATELET COUNT 169 X10^3/uL (150.0-450.0); RED BLOOD COUNT 4.55 X10^6/uL (4.7-6.0); RED CELL DISTRIBUTION WIDTH 12.9 % (11.6-16.5); WHITE BLOOD COUNT 18.2 X10^3/uL (3.6-10.0)
--- NOTE | 2021-03-20 08:10 | RAD ---
HISTORYSOB Relevant Clinical InformationSTUDYCHEST, 1 [id number]/2021FINDINGSThe trachea is midline. There is stable mild cardiomegaly. There is again seen patchy and interstitial alveolar radiopacities involving both lungs more prominent in the left lower lobeThere is no evidence of subcutaneous emphysema or pneumothorax. No pleural effusions.IMPRESSIONStable patchy ground-glass and alveolar radiopacities involving the periphery of the lungs and the left lower lobe.Electronically signed by: Scarlet Hussein (Mar 20, 2021 08:08:02)
[2021-03-20] MEDS ORDERED: ZyrTEC TAB 10 MG ONE (08:25)
[2021-03-20] MEDS ORDERED: HEPARIN SODIUM INJ 5000 UNITS ONE (08:25)
[2021-03-20] MEDS ORDERED: VITAMIN D3 125 mcg (5,000 UNITS) ONE (08:25)
[2021-03-20] MEDS ORDERED: PEPCID TAB 40 MG ONE (08:25)
[2021-03-20] MEDS ORDERED: ZINC SULFATE ONE (08:25)
[2021-03-20] MEDS ORDERED: LEVAQUIN PREMIX IV 500 MG 500 MG/100 ML BAG IV ONE (08:25)
[2021-03-20] MEDS ORDERED: PROTONIX TAB 40 MG PO ONE ×2 (08:25→22:19)
[2021-03-20] MEDS ORDERED: AVODART PO ONE (08:25)
[2021-03-20] MEDS ORDERED: FLUVOXAMINE MALEATE ONE ×2 (08:25→21:52)
[2021-03-20] MEDS ORDERED: NS 50 ML IV 50 ML IV ONE ×3 (08:26→21:52)
[2021-03-20] MEDS: LEVAQUIN PREMIX IV 500 MG 500 MG/100 ML BAG IV SCH (08:31)
[2021-03-20] MEDS: ZyrTEC TAB 10 MG PO SCH (08:35)
[2021-03-20] MEDS: ZINC SULFATE PO SCH (08:35)
[2021-03-20] MEDS: PEPCID TAB 40 MG PO SCH ×3 (08:36→22:16)
[2021-03-20] MEDS: AVODART PO SCH (08:36)
[2021-03-20] MEDS: VITAMIN D3 125 mcg (5,000 UNITS) PO SCH (08:36)
[2021-03-20] MEDS: PROTONIX TAB 40 MG PO SCH ×2 (08:37→22:20)
[2021-03-20] MEDS: FLUVOXAMINE MALEATE PO SCH ×2 (08:37→22:13)
[2021-03-20] MEDS ORDERED: HEPARIN SODIUM INJ 5000 UNITS IVP ONE (08:38)
[2021-03-20] MEDS: PULMICORT NEB TX 0.5 MG NEB SCH ×2 (08:42→21:55)
[2021-03-20] MEDS ORDERED: THIAMINE HCL INJ ONE ×2 (08:42→21:46)
[2021-03-20] MEDS: BROVANA IN SCH ×2 (08:42→21:55)
[2021-03-20] MEDS: THIAMINE HCL INJ IVP SCH ×2 (08:43→22:15)
[2021-03-20] MEDS: ACCUNEB 1.25 MG NEBULE NEB SCH ×3 (11:46→21:55)
[2021-03-20] MEDS: NS 1/2 1000 ML IV 1,000 ML IV SCH ×2 (12:05→14:28)
[2021-03-20] MEDS ORDERED: K-DUR TAB 20 MEQ PO ONE (12:27)
[2021-03-20] MEDS: K-DUR TAB 20 MEQ PO PRN (12:28)
[2021-03-20] MEDS ORDERED: NS 250 ML IV 250 ML IV ONE ×2 (13:50→21:47)
[2021-03-20] MEDS ORDERED: ZITHROMAX INJ 500 MG VIAL IV ONE (13:50)
[2021-03-20] MEDS ORDERED: SOLU-Medrol 40 MG VIAL ONE ×2 (13:50→21:47)
[2021-03-20] MEDS ORDERED: NS 1/2 1000 ML IV 1,000 ML IV ONE (13:51)
[2021-03-20] MEDS: SOLU-Medrol 125 MG VIAL IVP SCH ×2 (14:42→22:17)
[2021-03-20] MEDS: ZITHROMAX INJ 500 MG VIAL 500 MG in NS 250 ML IV 250 ML IV SCH (17:42)
[2021-03-20] MEDS ORDERED: LIPITOR TAB 80 MG ONE (21:46)
[2021-03-20] MEDS ORDERED: MELATONIN ONE (21:46)
[2021-03-20] MEDS ORDERED: PEPCID TAB 20 MG ONE (21:46)
[2021-03-20] MEDS ORDERED: REMDESIVIR IV ONE (21:47)
[2021-03-20] MEDS: SNACK - Diabetic Appropriate PO SCH (22:12)
[2021-03-20] MEDS: MELATONIN PO SCH (22:13)
[2021-03-20] MEDS: LIPITOR TAB 80 MG PO SCH (22:13)
[2021-03-20] MEDS: REMDESIVIR 100 MG in NS 250 ML IV 250 ML IV SCH (22:14)
[2021-03-20] MEDS: SINGULAIR TAB 10 MG PO SCH (22:15)
[2021-03-20] MEDS ORDERED: IVERMECTIN ONE (22:20)
[2021-03-20] MEDS: IVERMECTIN PO SCH (22:20)
[2021-03-21] MEDS ORDERED: ASCORBIC ACID INJ MULTI-DOSE VIAL IV ONE ×4 (02:01→19:46)
[2021-03-21] MEDS ORDERED: NS 50 ML IV 50 ML IV ONE ×4 (02:01→19:46)
[2021-03-21] MEDS: ASCORBIC ACID INJ MULTI-DOSE VIAL 1,500 MG in NS 50 ML IV 50 ML IV SCH ×4 (03:00→21:51)
[2021-03-21] MEDS ORDERED: SOLU-Medrol 40 MG VIAL ONE ×3 (04:25→19:46)
[2021-03-21] MEDS ORDERED: TESSALON PERLES PO ONE ×3 (04:25→19:45)
[2021-03-21] MEDS ORDERED: PERIACTIN TAB 4 MG ONE ×3 (04:25→19:46)
[2021-03-21 05:46] LABS: BASOPHILS % (AUTO) 0.1 % (0.2-1.0); HEMATOCRIT 38.1 % (42.0-54.0); HEMOGLOBIN 13.1 g/dL (13.5-18.0); LYMPHOCYTES % (AUTO) 5.6 % (21.0-51.0); MEAN CORPUSCULAR HEMOGLOBIN 30.9 pg (27.0-34.0); MEAN CORPUSCULAR HGB CONC 34.5 g/dL (33.0-35.0); MEAN CORPUSCULAR VOLUME 89.7 fL (80.0-100.0); MEAN PLATELET VOLUME 9.8 fL (7.4-11.0); MONOCYTES % (AUTO) 5.7 % (0.0-13.0); NEUTROPHILS # (AUTO) 15.1 x10^3/uL (2.2-4.8); NEUTROPHILS % (AUTO) 88.6 % (42.0-75.0); PLATELET COUNT 177 X10^3/uL (150.0-450.0); RED BLOOD COUNT 4.25 X10^6/uL (4.7-6.0); RED CELL DISTRIBUTION WIDTH 13.1 % (11.6-16.5); WHITE BLOOD COUNT 17.1 X10^3/uL (3.6-10.0)
[2021-03-21] MEDS: SOLU-Medrol 125 MG VIAL IVP SCH ×4 (05:50→21:55)
[2021-03-21] MEDS: TESSALON PERLES PO SCH ×3 (05:50→21:51)
[2021-03-21 05:52] LABS: ALANINE AMINOTRANSFERASE 44 Units/L (12-78); ALBUMIN 2.3 g/dL (3.4-5.0); ALKALINE PHOSPHATASE 62 Units/L (46-116); ASPARTATE AMINO TRANSFERASE 25 Units/L (15-37); BLOOD UREA NITROGEN 12 mg/dL (7-18); CALCIUM 7.6 mg/dL (8.5-10.1); CARBON DIOXIDE 32.5 mmol/L (21-32); CHLORIDE 105 mmol/L (98-107); COR NA(FOR HYPERGLY) 145 mmol/L (136-145); CREATININE 0.83 mg/dL (0.70-1.30); SODIUM 143 mmol/L (136-145); TOTAL PROTEIN 5.7 g/dL (6.4-8.2); eGFR NON BLACK RACES > 60 (>60)
[2021-03-21] MEDS: PERIACTIN TAB 4 MG PO SCH ×3 (05:53→21:51)
[2021-03-21] MEDS: ACCUNEB 1.25 MG NEBULE NEB SCH ×3 (06:22→21:10)
[2021-03-21 06:24] LABS: ABG BASE EXCESS 9.3 mmol/L (-2.0-2.0)
[2021-03-21 06:25] LABS: ABG ALLEN TEST POS; ABG HCO3 33.5 mmol/L (22-26)
[2021-03-21] MEDS ORDERED: ZyrTEC TAB 10 MG ONE (07:53)
[2021-03-21] MEDS ORDERED: FLUVOXAMINE MALEATE ONE ×2 (07:53→19:45)
[2021-03-21] MEDS ORDERED: THIAMINE HCL INJ ONE ×2 (07:53→19:45)
[2021-03-21] MEDS ORDERED: PROTONIX TAB 40 MG PO ONE ×2 (07:53→19:44)
[2021-03-21] MEDS ORDERED: VITAMIN D3 125 mcg (5,000 UNITS) ONE (07:53)
[2021-03-21] MEDS ORDERED: LEVAQUIN PREMIX IV 500 MG 500 MG/100 ML BAG IV ONE (07:54)
--- NOTE | 2021-03-21 08:08 | RAD ---
HISTORYSOB, COVID-19STUDYCHEST x-ray, 1 VIEWCOMPARISONX-ray 03/20/2021FINDINGSScattered bilateral lung infiltrates are similar to prior study. Findings suggest moderate COVID-19 pneumonia. Borderline cardiomegaly is seen without CHF. No pneumothorax or pleural effusion is seen.IMPRESSIONAppearance of the chest is similar to prior study.Electronically signed by: Mendez Jones (Mar 21, 2021 08:06:46)
[2021-03-21] MEDS ORDERED: HEPARIN SODIUM IN D5W 25,000 UNITS/500 ML BAG ONE (08:28)
[2021-03-21] MEDS ORDERED: NS 1/2 1000 ML IV 1,000 ML IV ONE ×2 (08:29→21:34)
[2021-03-21] MEDS: NS 1/2 1000 ML IV 1,000 ML IV SCH ×3 (08:37→21:56)
[2021-03-21] MEDS: HEPARIN SODIUM IN D5W 25,000 UNITS/500 ML BAG IV PRN (08:38)
[2021-03-21] MEDS ORDERED: K-DUR TAB 20 MEQ PO ONE (08:42)
[2021-03-21] MEDS: BROVANA IN SCH ×2 (09:10→21:10)
[2021-03-21] MEDS: PULMICORT NEB TX 0.5 MG NEB SCH ×2 (09:10→21:10)
[2021-03-21] MEDS: AVODART PO SCH (09:13)
[2021-03-21] MEDS: PROTONIX TAB 40 MG PO SCH ×2 (09:13→21:53)
[2021-03-21] MEDS: ZyrTEC TAB 10 MG PO SCH (09:13)
[2021-03-21] MEDS: THIAMINE HCL INJ IVP SCH ×2 (09:14→21:52)
[2021-03-21] MEDS: ZINC SULFATE PO SCH (09:14)
[2021-03-21] MEDS: VITAMIN D3 125 mcg (5,000 UNITS) PO SCH (09:14)
[2021-03-21] MEDS: K-DUR TAB 20 MEQ PO PRN (09:15)
[2021-03-21] MEDS: FLUVOXAMINE MALEATE PO SCH ×2 (09:15→21:54)
[2021-03-21] MEDS: PEPCID TAB 40 MG PO SCH ×2 (09:15→21:53)
[2021-03-21] MEDS: LEVAQUIN PREMIX IV 500 MG 500 MG/100 ML BAG IV SCH (09:15)
--- NOTE | 2021-03-21 10:27 | PCM.PROG ---
Progress Note - Progress Note for Day of Date of Exam: 03/20/21 - Subjective Subjective: MR. VAZQUEZ WAS ADMITTED FOR TREATMENT OF COVID PNEUMONIA, HYPOXIA, BILATERAL PULMONARY EMBOLISM, AND HYPOKALEMIA. HE DENIES ANY KNOWN MEDICAL HISTORY. TODAY, HE IS ALERT AND ORIENTED, LYING IN BED ON MORNING ROUNDS. HE IS CURRENTLY UTILIZING OXYGEN VIA NASAL CANNULA AT 3 LPM. HE CONTINUES WITH COMPLAINTS OF SHORTNESS OF BREATH AND WEAKNESS TODAY, BUT REPORTS SLIGHT IMPROVEMENT IN SYMPTOMS SINCE ADMISSION. HIS SATURATIONS HAVE BEEN 91-96% ON 3 LPM THROUGHOUT THE NIGHT. ON EXAMINATION, HEART IS REGULAR IN RATE AND RHYTHM. BILATERAL LUNGS ARE NOTED WITH DIMINISHED THROUGHOUT. ABDOMEN IS ROUND, SOFT, AND NON-TENDER WITH NORMAL BOWEL SOUNDS NOTED IN ALL QUADRANTS. HIS VITALS THIS MORNING ARE: 98.9-69-19-94%-102/62. LABS WERE OBTAINED. ABNORMAL LAB VALUES INCLUDE THE FOLLOWING: WBC 18.2, RBC 4.55, HCT 40.9, D-DIMER 10.7, POTASSIUM 3.2, GLUCOSE 155, CALCIUM 7.6, CRP 43.50, BNP 106, TOTAL PROTEIN 6.3, ALBUMIN 2.5. BLOOD CULTURES ARE PENDING. ABG OBTAINED AND REVEALED: PH 7.490, PC02 39, P02 66, HC03 29.7, 02 SAT 94, BASE EXESS 5.9, A-A GRADIENT 170, FI02 40. A CHEST XRAY WAS OBTAINED AND REVEALED: Stable patchy ground-glass and alveolar radiopacities involving the periphery of the lungs and the left lower lobe. HE IS CURRENTLY RECEIVING NS AT 75 ML/HR, HEPERIN DRIP PER PROTOCOL, LEVAQUIN 500MG IV DAILY, REMDESIVIR 100MG IV DAILY, ASCORBIC ACID 1500MG IV Q6H, ALBUTEROL NEBS QID, PULMICORT NEBS BID, BROVANA INHALER BID, SOLU-MEDROL 80MG IV Q8H, FLUVOXAMINE 50MG PO BID, AVODART 0.5MG PO DAILY, CYPROHEPTADINE 8MG PO TID, LIPITOR 80MG PO HS, TESSALON PERLES 200MG PO TID, TUSSIONEX 5ML PO Q12H PRN, CETIRIZINE 10MG PO DAILY, IVERMECTIN, PEPCID 40MG PO BID, ROBITUSSIN DM 10ML PO QID PRN, HUMULIN R SLIDING SCALE, SINGULAIR 10MG PO HS, PROTONIX 40MG PO BID, MILK OF MAGNESIA 30ML PO BID, COLACE 100MG PO BID, THIAMINE 200MG IV BID, AND ZINC SULFATE 220MG PO BID. WE WILL CONTINUE WITH CURRENT PLAN OF CARE TODAY AND OBTAIN AN ECHO. OTHERWISE, WE WILL FOLLOW UP WITH AM LABS, CHEST XRAY, ABG, AND CONTINUE TO MONITOR. TIME SPENT ON CLINICAL ASSESSMENT, REVIEWING LABS AND IMAGING, DECISION MAKING, AND DOCUMENTATION GREATER THAN 45 MINUTES. - Past Medical Family Social History Past Med/Fam/Surg Hx: No changes since H&P Allergies: Allergies No Known Drug Allergies Allergy (Verified 03/18/21 14:57) - Review of Systems ROS: No change since H&P - Vital Signs and I&O's Vital Signs: Temperature 97.9 F Pulse Rate [Left Brachial] 74 Pulse Rate 72 Respiratory Rate 18 Blood Pressure [Left Arm] 138/88 Blood Pressure 115/56 O2 Sat by Pulse Oximetry 85 Intake and Output: Intake & Output 03/18/21 03/19/21 03/20/21 03/21/21 11:59 11:59 11:59 11:59 Intake Total 1382 / 1382 5090 / 5090 3564 / 3564 Output Total 1175 / 1175 Balance 1382 / 1382 5090 / 5090 2389 / 2389 - Physical Exam Oriented: Normal Eyes: Normal Ear: Normal Nose: Normal Throat: Normal Respiratory: Generalized, Diminished Cardiovascular: Normal : Normal Auscultation: Bowel Sounds: Normal Palpation: Normal Tenderness: Normal Skin: Normal Musculoskeletal: Normal Psychiatric: Normal Mood Description: Calm Affect: Normal Speech Pattern: Clear, Appropriate - Laboratory and Diagnostics Result Diagrams: 03/21/21 05:18 03/21/21 05:18 Labs: 03/18/21 20:27 Blood Blood Culture - Preliminary 03/18/21 20:27 Blood Blood Culture - Preliminary Laboratory WBC 17.1 X10^3/uL (3.6-10.0) H 03/21/21 05:18 RBC 4.25 X10^6/uL (4.7-6.0) L 03/21/21 05:18 Hgb 13.1 g/dL (13.5-18.0) L 03/21/21 05:18 Hct 38.1 % (42.0-54.0) L 03/21/21 05:18 MCV 89.7 fL (80.0-100.0) 03/21/21 05:18 MCH 30.9 pg (27.0-34.0) 03/21/21 05:18 MCHC 34.5 g/dL (33.0-35.0) 03/21/21 05:18 RDW 13.1 % (11.6-16.5) 03/21/21 05:18 Plt Count 177 X10^3/uL (150.0-450.0) 03/21/21 05:18 MPV 9.8 fL (7.4-11.0) 03/21/21 05:18 Neut % (Auto) 88.6 % (42.0-75.0) H 03/21/21 05:18 Lymph % (Auto) 5.6 % (21.0-51.0) L 03/21/21 05:18 Atkinson % (Auto) 5.7 % (0.0-13.0) 03/21/21 05:18 Eos % (Auto) 0.0 % (0.9-2.9) L 03/21/21 05:18 Baso % (Auto) 0.1 % (0.2-1.0) L 03/21/21 05:18 Neut # (Auto) 15.1 x10^3/uL (2.2-4.8) H 03/21/21 05:18 Lymph # (Auto) 1.0 X10^3/uL (1.3-2.9) L 03/21/21 05:18 Atkinson # (Auto) 1.0 x10^3/uL (0.3-0.8) H 03/21/21 05:18 Eos # (Auto) 0.0 x10^3/uL (0.0-0.2) 03/21/21 05:18 Baso # (Auto) 0.0 X10^3/uL (0.0-0.1) 03/21/21 05:18 Absolute Nucleated RBC 0.1 /100WBC 03/21/21 05:18 ESR 27 MM/HOUR (0-15) H 03/18/21 20:27 PT 14.0 SECONDS (11.8-14.3) 03/19/21 05:55 INR Target Range - 03/19/21 05:55 INR 1.13 (0.8-1.3) 03/19/21 05:55 APTT 95.4 SECONDS (22.9-36.5) H 03/21/21 05:18 PTT Comment - 03/21/21 05:18 D-Dimer 8.59 ug/ml (0.0-0.57) H* 03/21/21 05:18 Sample Site Lr 03/21/21 06:19 ABG pH 7.500 (7.35-7.45) H 03/21/21 06:19 ABG pCO2 43.0 mmHg (35.0-45.0) 03/21/21 06:19 ABG pO2 63.0 mmHg (80.0-100.0) L 03/21/21 06:19 ABG HCO3 33.5 mmol/L (22-26) H* 03/21/21 06:19 ABG O2 Saturation 94.0 % (90-100) 03/21/21 06:19 ABG Base Excess 9.3 mmol/L (-2.0-2.0) H 03/21/21 06:19 Joe Test Pos 03/21/21 06:19 A-a Gradient 111.0 mmHg 03/21/21 06:19 FiO2 32.0 03/21/21 06:19 Blood Gas Comments Yelena well ae 03/21/21 06:19 Sodium 143 mmol/L (136-145) 03/21/21 05:18 Corrected Sodium 145 mmol/L (136-145) 03/21/21 05:18 Potassium 3.2 mmol/L (3.5-5.1) L 03/21/21 05:18 Chloride 105 mmol/L (98-107) 03/21/21 05:18 Carbon Dioxide 32.5 mmol/L (21-32) H 03/21/21 05:18 BUN 12 mg/dL (7-18) 03/21/21 05:18 Creatinine 0.83 mg/dL (0.70-1.30) 03/21/21 05:18 Est GFR (MDRD) Af Amer > 60 (>60) 03/21/21 05:18 Est GFR (MDRD) Non-Af > 60 (>60) 03/21/21 05:18 Glucose 168 mg/dL (65-99) H 03/21/21 05:18 Calcium 7.6 mg/dL (8.5-10.1) L 03/21/21 05:18 Corrected Calcium 9.0 mg/dL (8.5-10.1) 03/21/21 05:18 Magnesium 2.4 mg/dL (1.7-2.9) 03/19/21 16:18 Ferritin 1388 ng/mL (26-388) H 03/18/21 14:43 Total Bilirubin 0.70 mg/dL (0.2-1.0) 03/21/21 05:18 AST 25 Units/L (15-37) 03/21/21 05:18 ALT 44 Units/L (12-78) 03/21/21 05:18 Alkaline Phosphatase 62 Units/L (46-116) 03/21/21 05:18 Creatine Kinase 713 Units/L (39-308) H 03/18/21 20:27 CK-MB (CK-2) 1.0 ng/mL (0-4.0) 03/18/21 20:27 CK/CKMB % Calc 0.1 % (<4) 03/18/21 20:27 Troponin I < 0.02 ng/mL (0-1.5) 03/18/21 20:27 C-Reactive Protein 22.40 mg/L (0-3.0) H 03/21/21 05:18 B-Natriuretic Peptide 119 pg/mL (0-79) H 03/21/21 05:18 Total Protein 5.7 g/dL (6.4-8.2) L 03/21/21 05:18 Albumin 2.3 g/dL (3.4-5.0) L 03/21/21 05:18 Globulin 3.4 g/dL (2.5-4.5) 03/21/21 05:18 Albumin/Globulin Ratio 0.7 Ratio (1.1-2.1) L 03/21/21 05:18 SARS CoV-2 RNA Rapid ELIZABETH Positive (NEGATIVE) A 03/18/21 14:46 - Plan (1) Pneumonia due to COVID-19 virus Status: Acute Plan: SUPPLEMENTAL OXYGEN, NS AT 75 ML/HR, HEPERIN DRIP PER PROTOCOL, LEVAQUIN 500MG IV DAILY, REMDESIVIR 100MG IV DAILY, ASCORBIC ACID 1500MG IV Q6H, ALBUTEROL NEBS QID, PULMICORT NEBS BID, BROVANA INHALER BID, SOLU-MEDROL 80MG IV Q8H, FLUVOXAMINE 50MG PO BID, AVODART 0.5MG PO DAILY, CYPROHEPTADINE 8MG PO TID, LIPITOR 80MG PO HS, TESSALON PERLES 200MG PO TID, TUSSIONEX 5ML PO Q12H PRN, CETIRIZINE 10MG PO DAILY, IVERMECTIN, PEPCID 40MG PO BID, ROBITUSSIN DM 10ML PO QID PRN, HUMULIN R SLIDING SCALE, SINGULAIR 10MG PO HS, PROTONIX 40MG PO BID, MILK OF MAGNESIA 30ML PO BID, COLACE 100MG PO BID, THIAMINE 200MG IV BID, AND ZINC SULFATE 220MG PO BID. (2) Bilateral pulmonary embolism Status: Acute (3) Hypoxia Status: Acute (4) Hypokalemia Status: Acute
--- NOTE | 2021-03-21 10:35 | PCM.PROG ---
Progress Note - Progress Note for Day of Date of Exam: 03/21/21 - Subjective Subjective: MR. VAZQUEZ WAS ADMITTED FOR TREATMENT OF COVID PNEUMONIA, HYPOXIA, BILATERAL PULMONARY EMBOLISM, AND HYPOKALEMIA. HE DENIES ANY KNOWN MEDICAL HISTORY. TODAY, HE IS ALERT AND ORIENTED, LYING IN BED ON MORNING ROUNDS. HE IS CURRENTLY UTILIZING OXYGEN VIA NASAL CANNULA AT 3 LPM. HE CONTINUES WITH COMPLAINTS OF SHORTNESS OF BREATH AND WEAKNESS TODAY, BUT REPORTS SLIGHT IMPROVEMENT IN SYMPTOMS SINCE ADMISSION. HIS SATURATIONS HAVE BEEN 97-94% ON 3 LPM THROUGHOUT THE NIGHT. ON EXAMINATION, HEART IS REGULAR IN RATE AND RHYTHM. BILATERAL LUNGS ARE NOTED WITH DIMINISHED THROUGHOUT. ABDOMEN IS ROUND, SOFT, AND NON-TENDER WITH NORMAL BOWEL SOUNDS NOTED IN ALL QUADRANTS. HIS VITALS THIS MORNING ARE: 98.9-68-16-92%-102/62. LABS WERE OBTAINED. ABNORMAL LAB VALUES INCLUDE THE FOLLOWING: WBC 17.1, RBC 4.25, HGB 13.1, HCT 38.1, POTASSIUM 3.2, CARBON DIOXIDE 32.5, GLUCOSE 168, CALCIUM 7.6, CRP 22.40, BNP 119, TOTAL PROTEIN 5.7, ALBUMIN 2.3. BLOOD CULTURES ARE PENDING. ABG OBTAINED AND REVEALED: PH 7.500, PC02 43, P02 63, HC03 33.5, 02 SAT 94, BASE EXCESS 9.3, A-A GRADIENT 111, FI02 32.0. A CHEST XRAY WAS OBTAINED AND REVEALED: Scattered bilateral lung infiltrates are similar to prior study. Findings suggest moderate COVID-19 pneumonia. Borderline cardiomegaly is seen without CHF. No pneumothorax or pleural effusion is seen. HE IS CURRENTLY RECEIVING NS AT 75 ML/HR, HEPERIN DRIP PER PROTOCOL, LEVAQUIN 500MG IV DAILY, REMDESIVIR 100MG IV DAILY, ASCORBIC ACID 1500MG IV Q6H, ALBUTEROL NEBS QID, PULMICORT NEBS BID, BROVANA INHALER BID, SOLU-MEDROL 80MG IV Q8H, FLUVOXAMINE 50MG PO BID, AVODART 0.5MG PO DAILY, CYPROHEPTADINE 8MG PO TID, LIPITOR 80MG PO HS, TESSALON PERLES 200MG PO TID, TUSSIONEX 5ML PO Q12H PRN, CETIRIZINE 10MG PO DAILY, IVERMECTIN, PEPCID 40MG PO BID, ROBITUSSIN DM 10ML PO QID PRN, HUMULIN R SLIDING SCALE, SINGULAIR 10MG PO HS, PROTONIX 40MG PO BID, MILK OF MAGNESIA 30ML PO BID, COLACE 100MG PO BID, THIAMINE 200MG IV BID, AND ZINC SULFATE 220MG PO BID. WE WILL CONTINUE WITH CURRENT PLAN OF CARE TODAY AND OBTAIN AN ECHO. OTHERWISE, WE WILL FOLLOW UP WITH AM LABS, CHEST XRAY, ABG, AND CONTINUE TO MONITOR. TIME SPENT ON CLINICAL ASSESSMENT, REVIEWING LABS AND IMAGING, DECISION MAKING, AND DOCUMENTATION GREATER THAN 45 MINUTES. - Past Medical Family Social History Past Med/Fam/Surg Hx: No changes since H&P Allergies: Allergies No Known Drug Allergies Allergy (Verified 03/18/21 14:57) - Review of Systems ROS: No change since H&P - Vital Signs and I&O's Vital Signs: Temperature 97.9 F Pulse Rate [Left Brachial] 74 Pulse Rate 72 Respiratory Rate 18 Blood Pressure [Left Arm] 138/88 Blood Pressure 115/56 O2 Sat by Pulse Oximetry 85 Intake and Output: Intake & Output 03/18/21 03/19/21 03/20/21 03/21/21 11:59 11:59 11:59 11:59 Intake Total 1382 / 1382 5090 / 5090 3564 / 3564 Output Total 1175 / 1175 Balance 1382 / 1382 5090 / 5090 2389 / 2389 - Physical Exam Oriented: Normal Eyes: Normal Ear: Normal Nose: Normal Throat: Normal Respiratory: Generalized, Diminished Cardiovascular: Normal : Normal Auscultation: Bowel Sounds: Normal Tenderness: Normal Skin: Normal Musculoskeletal: Normal Psychiatric: Normal Mood Description: Calm Affect: Normal Speech Pattern: Clear, Appropriate - Laboratory and Diagnostics Result Diagrams: 03/21/21 05:18 03/21/21 05:18 Labs: 03/18/21 20:27 Blood Blood Culture - Preliminary 03/18/21 20:27 Blood Blood Culture - Preliminary Laboratory WBC 17.1 X10^3/uL (3.6-10.0) H 03/21/21 05:18 RBC 4.25 X10^6/uL (4.7-6.0) L 03/21/21 05:18 Hgb 13.1 g/dL (13.5-18.0) L 03/21/21 05:18 Hct 38.1 % (42.0-54.0) L 03/21/21 05:18 MCV 89.7 fL (80.0-100.0) 03/21/21 05:18 MCH 30.9 pg (27.0-34.0) 03/21/21 05:18 MCHC 34.5 g/dL (33.0-35.0) 03/21/21 05:18 RDW 13.1 % (11.6-16.5) 03/21/21 05:18 Plt Count 177 X10^3/uL (150.0-450.0) 03/21/21 05:18 MPV 9.8 fL (7.4-11.0) 03/21/21 05:18 Neut % (Auto) 88.6 % (42.0-75.0) H 03/21/21 05:18 Lymph % (Auto) 5.6 % (21.0-51.0) L 03/21/21 05:18 [place] % (Auto) 5.7 % (0.0-13.0) 03/21/21 05:18 Eos % (Auto) 0.0 % (0.9-2.9) L 03/21/21 05:18 Baso % (Auto) 0.1 % (0.2-1.0) L 03/21/21 05:18 Neut # (Auto) 15.1 x10^3/uL (2.2-4.8) H 03/21/21 05:18 Lymph # (Auto) 1.0 X10^3/uL (1.3-2.9) L 03/21/21 05:18 [place] # (Auto) 1.0 x10^3/uL (0.3-0.8) H 03/21/21 05:18 Eos # (Auto) 0.0 x10^3/uL (0.0-0.2) 03/21/21 05:18 Baso # (Auto) 0.0 X10^3/uL (0.0-0.1) 03/21/21 05:18 Absolute Nucleated RBC 0.1 /100WBC 03/21/21 05:18 ESR 27 MM/HOUR (0-15) H 03/18/21 20:27 PT 14.0 SECONDS (11.8-14.3) 03/19/21 05:55 INR Target Range - 03/19/21 05:55 INR 1.13 (0.8-1.3) 03/19/21 05:55 APTT 95.4 SECONDS (22.9-36.5) H 03/21/21 05:18 PTT Comment - 03/21/21 05:18 D-Dimer 8.59 ug/ml (0.0-0.57) H* 03/21/21 05:18 Sample Site Lr 03/21/21 06:19 ABG pH 7.500 (7.35-7.45) H 03/21/21 06:19 ABG pCO2 43.0 mmHg (35.0-45.0) 03/21/21 06:19 ABG pO2 63.0 mmHg (80.0-100.0) L 03/21/21 06:19 ABG HCO3 33.5 mmol/L (22-26) H* 03/21/21 06:19 ABG O2 Saturation 94.0 % (90-100) 03/21/21 06:19 ABG Base Excess 9.3 mmol/L (-2.0-2.0) H 03/21/21 06:19 Joe Test Pos 03/21/21 06:19 A-a Gradient 111.0 mmHg 03/21/21 06:19 FiO2 32.0 03/21/21 06:19 Blood Gas Comments Yelena well ae 03/21/21 06:19 Sodium 143 mmol/L (136-145) 03/21/21 05:18 Corrected Sodium 145 mmol/L (136-145) 03/21/21 05:18 Potassium 3.2 mmol/L (3.5-5.1) L 03/21/21 05:18 Chloride 105 mmol/L (98-107) 03/21/21 05:18 Carbon Dioxide 32.5 mmol/L (21-32) H 03/21/21 05:18 BUN 12 mg/dL (7-18) 03/21/21 05:18 Creatinine 0.83 mg/dL (0.70-1.30) 03/21/21 05:18 Est GFR (MDRD) Af Amer > 60 (>60) 03/21/21 05:18 Est GFR (MDRD) Non-Af > 60 (>60) 03/21/21 05:18 Glucose 168 mg/dL (65-99) H 03/21/21 05:18 Calcium 7.6 mg/dL (8.5-10.1) L 03/21/21 05:18 Corrected Calcium 9.0 mg/dL (8.5-10.1) 03/21/21 05:18 Magnesium 2.4 mg/dL (1.7-2.9) 03/19/21 16:18 Ferritin 1388 ng/mL (26-388) H 03/18/21 14:43 Total Bilirubin 0.70 mg/dL (0.2-1.0) 03/21/21 05:18 AST 25 Units/L (15-37) 03/21/21 05:18 ALT 44 Units/L (12-78) 03/21/21 05:18 Alkaline Phosphatase 62 Units/L (46-116) 03/21/21 05:18 Creatine Kinase 713 Units/L (39-308) H 03/18/21 20:27 CK-MB (CK-2) 1.0 ng/mL (0-4.0) 03/18/21 20:27 CK/CKMB % Calc 0.1 % (<4) 03/18/21 20:27 Troponin I < 0.02 ng/mL (0-1.5) 03/18/21 20:27 C-Reactive Protein 22.40 mg/L (0-3.0) H 03/21/21 05:18 B-Natriuretic Peptide 119 pg/mL (0-79) H 03/21/21 05:18 Total Protein 5.7 g/dL (6.4-8.2) L 03/21/21 05:18 Albumin 2.3 g/dL (3.4-5.0) L 03/21/21 05:18 Globulin 3.4 g/dL (2.5-4.5) 03/21/21 05:18 Albumin/Globulin Ratio 0.7 Ratio (1.1-2.1) L 03/21/21 05:18 SARS CoV-2 RNA Rapid ELIZABETH Positive (NEGATIVE) A 03/18/21 14:46 - Plan (1) Pneumonia due to COVID-19 virus Status: Acute Plan: SUPPLEMENTAL OXYGEN, NS AT 75 ML/HR, HEPERIN DRIP PER PROTOCOL, LEVAQUIN 500MG IV DAILY, REMDESIVIR 100MG IV DAILY, ASCORBIC ACID 1500MG IV Q6H, ALBUTEROL NEBS QID, PULMICORT NEBS BID, BROVANA INHALER BID, SOLU-MEDROL 80MG IV Q8H, FLUVOXAMINE 50MG PO BID, AVODART 0.5MG PO DAILY, CYPROHEPTADINE 8MG PO TID, LIPITOR 80MG PO HS, TESSALON PERLES 200MG PO TID, TUSSIONEX 5ML PO Q12H PRN, CETIRIZINE 10MG PO DAILY, IVERMECTIN, PEPCID 40MG PO BID, ROBITUSSIN DM 10ML PO QID PRN, HUMULIN R SLIDING SCALE, SINGULAIR 10MG PO HS, PROTONIX 40MG PO BID, MILK OF MAGNESIA 30ML PO BID, COLACE 100MG PO BID, THIAMINE 200MG IV BID, AND ZINC SULFATE 220MG PO BID. (2) Bilateral pulmonary embolism Status: Acute (3) Hypoxia Status: Acute (4) Hypokalemia Status: Acute
[2021-03-21] MEDS ORDERED: ZITHROMAX INJ 500 MG VIAL IV ONE (12:15)
[2021-03-21] MEDS ORDERED: NS 250 ML IV 250 ML IV ONE ×2 (12:16→19:47)
[2021-03-21] MEDS: ZITHROMAX INJ 500 MG VIAL 500 MG in NS 250 ML IV 250 ML IV SCH (15:07)
[2021-03-21] MEDS ORDERED: IVERMECTIN ONE (19:45)
[2021-03-21] MEDS ORDERED: PEPCID TAB 40 MG ONE (19:45)
[2021-03-21] MEDS ORDERED: MELATONIN ONE (19:45)
[2021-03-21] MEDS ORDERED: LIPITOR TAB 80 MG ONE (19:45)
[2021-03-21] MEDS ORDERED: REMDESIVIR IV ONE (19:46)
[2021-03-21] MEDS: IVERMECTIN PO SCH (21:52)
[2021-03-21] MEDS: SINGULAIR TAB 10 MG PO SCH (21:52)
[2021-03-21] MEDS: LIPITOR TAB 80 MG PO SCH (21:53)
[2021-03-21] MEDS: REMDESIVIR 100 MG in NS 250 ML IV 250 ML IV SCH (21:53)
[2021-03-21] MEDS: MELATONIN PO SCH (21:53)
[2021-03-21] MEDS: SNACK - Diabetic Appropriate PO SCH (21:54)
[2021-03-22] MEDS ORDERED: PERIACTIN TAB 4 MG ONE ×2 (02:41→13:41)
[2021-03-22] MEDS ORDERED: SOLU-Medrol 125 MG VIAL ONE (02:41)
[2021-03-22] MEDS ORDERED: ASCORBIC ACID INJ MULTI-DOSE VIAL IV ONE ×3 (02:41→13:41)
[2021-03-22] MEDS ORDERED: NS 50 ML IV 50 ML IV ONE (02:41)
[2021-03-22] MEDS ORDERED: TESSALON PERLES PO ONE ×2 (02:41→13:41)
[2021-03-22] MEDS: ASCORBIC ACID INJ MULTI-DOSE VIAL 1,500 MG in NS 50 ML IV 50 ML IV SCH ×4 (03:26→21:01)
[2021-03-22] MEDS: NS 1/2 1000 ML IV 1,000 ML IV SCH ×2 (03:40→23:15)
[2021-03-22 04:56] LABS: ABG HCO3 34.3 mmol/L (22-26)
[2021-03-22] MEDS: PERIACTIN TAB 4 MG PO SCH ×3 (05:32→20:59)
[2021-03-22] MEDS: SOLU-Medrol 125 MG VIAL IVP SCH ×3 (05:33→21:00)
[2021-03-22] MEDS: TESSALON PERLES PO SCH ×3 (05:33→21:00)
[2021-03-22 06:29] LABS: BASOPHILS % (AUTO) 0 % (0.2-1.0); HEMATOCRIT 37.8 % (42.0-54.0); HEMOGLOBIN 13.2 g/dL (13.5-18.0); LYMPHOCYTES # (AUTO) 0.9 X10^3/uL (1.3-2.9); LYMPHOCYTES % (AUTO) 6.4 % (21.0-51.0); MEAN CORPUSCULAR HEMOGLOBIN 31.4 pg (27.0-34.0); MEAN CORPUSCULAR HGB CONC 34.9 g/dL (33.0-35.0); MEAN CORPUSCULAR VOLUME 89.8 fL (80.0-100.0); MEAN PLATELET VOLUME 10.3 fL (7.4-11.0); MONOCYTES # (AUTO) 0.8 x10^3/uL (0.3-0.8); MONOCYTES % (AUTO) 5.8 % (0.0-13.0); NEUTROPHILS # (AUTO) 12.5 x10^3/uL (2.2-4.8); NEUTROPHILS % (AUTO) 87.8 % (42.0-75.0); PLATELET COUNT 198 X10^3/uL (150.0-450.0); WHITE BLOOD COUNT 14.2 X10^3/uL (3.6-10.0)
[2021-03-22 07:01] LABS: ALANINE AMINOTRANSFERASE 108 Units/L (12-78); ALBUMIN 2.4 g/dL (3.4-5.0); ALKALINE PHOSPHATASE 70 Units/L (46-116); ASPARTATE AMINO TRANSFERASE 62 Units/L (15-37); BLOOD UREA NITROGEN 10 mg/dL (7-18); CALCIUM 7.3 mg/dL (8.5-10.1); CARBON DIOXIDE 32.8 mmol/L (21-32); CHLORIDE 106 mmol/L (98-107); COR CA(FOR HYPOALB) 8.6 mg/dL (8.5-10.1); COR NA(FOR HYPERGLY) 146 mmol/L (136-145); CREATININE 0.71 mg/dL (0.70-1.30); SODIUM 144 mmol/L (136-145); TOTAL PROTEIN 5.7 g/dL (6.4-8.2); eGFR NON BLACK RACES > 60 (>60)
--- NOTE | 2021-03-22 08:06 | RAD ---
HISTORYSOBSTUDYCHEST, 1 [id number] lungs are not well inflated. As a result, there are hypoventilatory changes.Patchy bilateral opacity in the lungs compatible with bronchopneumonia. No change from prior study.No significant pleural effusion. No pneumothorax.The heart size is magnified.Bones are unremarkable.EKG leads are noted.IMPRESSION1. Unchanged bronchopneumoniaElectronically signed by: Tj Patricia (Mar 22, 2021 08:05:02)
[2021-03-22 08:17] LABS: PLATELET MORPHOLOGY COMMENT NORMAL (NORMAL)
[2021-03-22] MEDS ORDERED: FLUVOXAMINE MALEATE ONE (08:29)
[2021-03-22] MEDS ORDERED: PROTONIX TAB 40 MG PO ONE (08:29)
[2021-03-22] MEDS ORDERED: THIAMINE HCL INJ ONE (08:29)
[2021-03-22] MEDS ORDERED: ZINC SULFATE ONE (08:29)
[2021-03-22] MEDS ORDERED: PEPCID TAB 40 MG ONE (08:29)
[2021-03-22] MEDS ORDERED: ZyrTEC TAB 10 MG ONE (08:29)
[2021-03-22] MEDS ORDERED: AVODART PO ONE (08:29)
[2021-03-22] MEDS ORDERED: LEVAQUIN PREMIX IV 500 MG 500 MG/100 ML BAG IV ONE (08:30)
[2021-03-22] MEDS ORDERED: VITAMIN D3 125 mcg (5,000 UNITS) ONE (08:30)
[2021-03-22] MEDS ORDERED: NS 100 ML IV 100 ML ONE ×2 (08:30→13:41)
[2021-03-22] MEDS: BROVANA IN SCH (09:30)
[2021-03-22] MEDS: PULMICORT NEB TX 0.5 MG NEB SCH ×2 (09:30→21:43)
[2021-03-22] MEDS: ZyrTEC TAB 10 MG PO SCH (09:31)
[2021-03-22] MEDS: VITAMIN D3 125 mcg (5,000 UNITS) PO SCH (09:31)
[2021-03-22] MEDS: THIAMINE HCL INJ IVP SCH ×2 (09:34→21:01)
[2021-03-22] MEDS: PROTONIX TAB 40 MG PO SCH ×2 (09:35→21:00)
[2021-03-22] MEDS: ZINC SULFATE PO SCH (09:35)
[2021-03-22] MEDS: AVODART PO SCH (09:36)
[2021-03-22] MEDS: FLUVOXAMINE MALEATE PO SCH ×2 (09:36→21:00)
[2021-03-22] MEDS: PEPCID TAB 40 MG PO SCH ×2 (09:36→20:59)
[2021-03-22] MEDS: LEVAQUIN PREMIX IV 500 MG 500 MG/100 ML BAG IV SCH (09:37)
[2021-03-22] MEDS ORDERED: COUMADIN TAB 5 MG (JANTOVEN) PO ONE (10:09)
[2021-03-22] MEDS ORDERED: LOVENOX INJ 80 MG SYR SC ONE (11:04)
[2021-03-22] MEDS: LOVENOX INJ 80 MG SYR SC SCH ×2 (11:46→21:05)
[2021-03-22] MEDS ORDERED: SOLU-Medrol 40 MG VIAL ONE (13:41)
--- NOTE | 2021-03-22 13:51 | PCM.PROG ---
Progress Note - Progress Note for Day of Date of Exam: 03/22/21 - Subjective Subjective: MR. VAZQUEZ WAS ADMITTED FOR TREATMENT OF COVID PNEUMONIA, HYPOXIA, BILATERAL PULMONARY EMBOLISM, AND HYPOKALEMIA. HE DENIES ANY KNOWN MEDICAL HISTORY. TODAY, HE IS ALERT AND ORIENTED, LYING IN BED ON MORNING ROUNDS. HE IS CURRENTLY UTILIZING OXYGEN VIA NASAL CANNULA AT 3 LPM. HE CONTINUES WITH COMPLAINTS OF SHORTNESS OF BREATH AND WEAKNESS TODAY, BUT REPORTS SLIGHT IMPROVEMENT IN SYMPTOMS SINCE ADMISSION. HIS SATURATIONS HAVE BEEN 92-94% ON 4.5 LPM THROUGHOUT THE NIGHT. ON EXAMINATION, HEART IS REGULAR IN RATE AND RHYTHM. BILATERAL LUNGS ARE NOTED WITH DIMINISHED THROUGHOUT. ABDOMEN IS ROUND, SOFT, AND NON-TENDER WITH NORMAL BOWEL SOUNDS NOTED IN ALL QUADRANTS. HIS VITALS THIS MORNING ARE: 98.1-57-14-95%-127/74. LABS WERE OBTAINED. ABNORMAL LAB VALUES INCLUDE THE FOLLOWING: WBC 14.2, rbc 4.20, hgb 13.2, hct 37.8, d-dimer 9.23, potassium 3.2, carbon dioxide 32.8, glucose 194, calcium 7.3, ast 62, alk phos 108, crp 14.80, bnp 92.4, total protein 5.7, albumin 2.4. BLOOD CULTURES ARE PENDING. ABG OBTAINED AND REVEALED: PH 7.500, pc02 44, p02 64, hc03 34.3, 02 sat 94, a-a gradient 138, fi02 36. A CHEST XRAY WAS OBTAINED AND REVEALED: 1. Unchanged bronchopneumonia. HE IS CURRENTLY RECEIVING NS AT 75 ML/HR, HEPERIN DRIP PER PROTOCOL, LEVAQUIN 500MG IV DAILY, REMDESIVIR 100MG IV DAILY, ASCORBIC ACID 1,500MG IV Q6H, ALBUTEROL NEBS QID, PULMICORT NEBS BID, BROVANA INHALER BID , SOLU-MEDROL 80MG IV Q8H, FLUVOXAMINE 50MG PO BID, AVODART 0.5MG PO DAILY, CYPROHEPTADINE 8MG PO TID, LIPITOR 80MG PO HS, TESSALON PERLES 200MG PO TID, TUSSIONEX 5ML PO Q12H PRN, CETIRIZINE 10MG PO DAILY, IVERMECTIN, PEPCID 40MG PO BID, ROBITUSSIN DM 10ML PO QID PRN, HUMULIN R SLIDING SCALE, SINGULAIR 10MG PO HS, PROTONIX 40MG PO BID, MILK OF MAGNESIA 30ML PO BID, COLACE 100MG PO BID, THIAMINE 200MG IV BID, AND ZINC SULFATE 220MG PO BID. TODAY, WE WILL ADD COUMADIN 5MG PO DAILY. WHEN THERAPUTIC, WE WILL DISCONTINUE THE HAPARIN. OTHERWISE, WE WILL CONTINUE WITH CURRENT PLAN OF CARE TODAY. WE WILL FOLLOW UP WITH AM LABS, CHEST XRAY, ABG, AND CONTINUE TO MONITOR. TIME SPENT ON CLINICAL ASSESSMENT, REVIEWING LABS AND IMAGING, DECISION MAKING, AND DOCUMENTATION GREATER THAN 45 MINUTES. - Past Medical Family Social History Past Med/Fam/Surg Hx: No changes since H&P Allergies: Allergies No Known Drug Allergies Allergy (Verified 03/18/21 14:57) - Review of Systems ROS: No change since H&P - Vital Signs and I&O's Vital Signs: Temperature 98.1 F Pulse Rate [Left Brachial] 74 Pulse Rate 70 Respiratory Rate 19 Blood Pressure [Left Arm] 138/88 Blood Pressure 162/87 O2 Sat by Pulse Oximetry 94 Intake and Output: Intake & Output 03/20/21 03/21/21 03/22/21 03/23/21 11:59 11:59 11:59 11:59 Intake Total 5090 / 5090 3564 / 3564 3672 / 3672 Output Total 1175 / 1175 3400 / 3400 Balance 5090 / 5090 2389 / 2389 272 / 272 - Physical Exam Oriented: Normal Eyes: Normal Ear: Normal Nose: Normal Throat: Normal Respiratory: Generalized, Diminished Cardiovascular: Normal : Normal Auscultation: Bowel Sounds: Normal Tenderness: Normal Skin: Normal Musculoskeletal: Normal Psychiatric: Normal Mood Description: Calm Affect: Normal Speech Pattern: Clear, Appropriate - Laboratory and Diagnostics Result Diagrams: 03/22/21 05:45 03/22/21 05:45 Labs: 03/18/21 20:27 Blood Blood Culture - Preliminary 03/18/21 20:27 Blood Blood Culture - Preliminary Laboratory WBC 14.2 X10^3/uL (3.6-10.0) H 03/22/21 05:45 RBC 4.20 X10^6/uL (4.7-6.0) L 03/22/21 05:45 Hgb 13.2 g/dL (13.5-18.0) L 03/22/21 05:45 Hct 37.8 % (42.0-54.0) L 03/22/21 05:45 MCV 89.8 fL (80.0-100.0) 03/22/21 05:45 MCH 31.4 pg (27.0-34.0) 03/22/21 05:45 MCHC 34.9 g/dL (33.0-35.0) 03/22/21 05:45 RDW 13.0 % (11.6-16.5) 03/22/21 05:45 Plt Count 198 X10^3/uL (150.0-450.0) 03/22/21 05:45 Plt Count Comment Adequate (ADEQUATE) 03/22/21 05:45 MPV 10.3 fL (7.4-11.0) 03/22/21 05:45 Neut % (Auto) 87.8 % (42.0-75.0) H 03/22/21 05:45 Lymph % (Auto) 6.4 % (21.0-51.0) L 03/22/21 05:45 [facility] % (Auto) 5.8 % (0.0-13.0) 03/22/21 05:45 Eos % (Auto) 0.0 % (0.9-2.9) L 03/22/21 05:45 Baso % (Auto) 0 % (0.2-1.0) L 03/22/21 05:45 Neut # (Auto) 12.5 x10^3/uL (2.2-4.8) H 03/22/21 05:45 Lymph # (Auto) 0.9 X10^3/uL (1.3-2.9) L 03/22/21 05:45 [facility] # (Auto) 0.8 x10^3/uL (0.3-0.8) 03/22/21 05:45 Eos # (Auto) 0.0 x10^3/uL (0.0-0.2) 03/22/21 05:45 Baso # (Auto) 0.0 X10^3/uL (0.0-0.1) 03/22/21 05:45 Absolute Nucleated RBC 0.1 /100WBC 03/22/21 05:45 Total Counted 100 03/22/21 05:45 Neutrophils % (Manual) 89 % (39-76) H 03/22/21 05:45 Lymphocytes % (Manual) 8 % (13-43) L 03/22/21 05:45 Monocytes % (Manual) 3 % (4-9) L 03/22/21 05:45 Plt Morphology Comment Normal (NORMAL) 03/22/21 05:45 RBC Morphology Normal (NORMAL) 03/22/21 05:45 ESR 27 MM/HOUR (0-15) H 03/18/21 20:27 PT 14.0 SECONDS (11.8-14.3) 03/19/21 05:55 INR Target Range - 03/19/21 05:55 INR 1.13 (0.8-1.3) 03/19/21 05:55 APTT 96.3 SECONDS (22.9-36.5) H 03/22/21 05:45 PTT Comment - 03/22/21 05:45 D-Dimer 9.23 ug/ml (0.0-0.57) H* 03/22/21 05:45 Sample Site Lr 03/21/21 06:19 ABG pH 7.500 (7.35-7.45) H 03/22/21 04:32 ABG pCO2 44.0 mmHg (35.0-45.0) 03/22/21 04:32 ABG pO2 64.0 mmHg (80.0-100.0) L 03/22/21 04:32 ABG HCO3 34.3 mmol/L (22-26) H* 03/22/21 04:32 ABG O2 Saturation 94.0 % (90-100) 03/22/21 04:32 ABG Base Excess 10.0 mmol/L (-2.0-2.0) H 03/22/21 04:32 Joe Test Pos 03/21/21 06:19 A-a Gradient 138.0 mmHg 03/22/21 04:32 FiO2 36.0 03/22/21 04:32 Blood Gas Comments Yelena well ae 03/21/21 06:19 Sodium 144 mmol/L (136-145) 03/22/21 05:45 Corrected Sodium 146 mmol/L (136-145) H 03/22/21 05:45 Potassium 3.2 mmol/L (3.5-5.1) L 03/22/21 05:45 Chloride 106 mmol/L (98-107) 03/22/21 05:45 Carbon Dioxide 32.8 mmol/L (21-32) H 03/22/21 05:45 BUN 10 mg/dL (7-18) 03/22/21 05:45 Creatinine 0.71 mg/dL (0.70-1.30) 03/22/21 05:45 Est GFR (MDRD) Af Amer > 60 (>60) 03/22/21 05:45 Est GFR (MDRD) Non-Af > 60 (>60) 03/22/21 05:45 Glucose 194 mg/dL (65-99) H 03/22/21 05:45 Calcium 7.3 mg/dL (8.5-10.1) L 03/22/21 05:45 Corrected Calcium 8.6 mg/dL (8.5-10.1) 03/22/21 05:45 Magnesium 2.4 mg/dL (1.7-2.9) 03/19/21 16:18 Ferritin 1388 ng/mL (26-388) H 03/18/21 14:43 Total Bilirubin 0.80 mg/dL (0.2-1.0) 03/22/21 05:45 AST 62 Units/L (15-37) H 03/22/21 05:45 ALT 108 Units/L (12-78) H 03/22/21 05:45 Alkaline Phosphatase 70 Units/L (46-116) 03/22/21 05:45 Creatine Kinase 713 Units/L (39-308) H 03/18/21 20:27 CK-MB (CK-2) 1.0 ng/mL (0-4.0) 03/18/21 20:27 CK/CKMB % Calc 0.1 % (<4) 03/18/21 20:27 Troponin I < 0.02 ng/mL (0-1.5) 03/18/21 20:27 C-Reactive Protein 14.80 mg/L (0-3.0) H 03/22/21 05:45 B-Natriuretic Peptide 92.4 pg/mL (0-79) H 03/22/21 05:45 Total Protein 5.7 g/dL (6.4-8.2) L 03/22/21 05:45 Albumin 2.4 g/dL (3.4-5.0) L 03/22/21 05:45 Globulin 3.3 g/dL (2.5-4.5) 03/22/21 05:45 Albumin/Globulin Ratio 0.7 Ratio (1.1-2.1) L 03/22/21 05:45 Homocysteine 4 umol/L (0-15) 03/18/21 20:27 SARS CoV-2 RNA Rapid ELIZABETH Positive (NEGATIVE) A 03/18/21 14:46 - Plan (1) Pneumonia due to COVID-19 virus Status: Acute Plan: SUPPLEMENTAL OXYGEN, NS AT 75 ML/HR, HEPERIN DRIP PER PROTOCOL, LEVAQUIN 500MG IV DAILY, REMDESIVIR 100MG IV DAILY, ASCORBIC ACID 1500MG IV Q6H, ALBUTEROL NEBS QID, PULMICORT NEBS BID, BROVANA INHALER BID, SOLU-MEDROL 80MG IV Q8H, FLUVOXAMINE 50MG PO BID, AVODART 0.5MG PO DAILY, CYPROHEPTADINE 8MG PO TID, LIPITOR 80MG PO HS, TESSALON PERLES 200MG PO TID, TUSSIONEX 5ML PO Q12H PRN, CETIRIZINE 10MG PO DAILY, IVERMECTIN, PEPCID 40MG PO BID, ROBITUSSIN DM 10ML PO QID PRN, HUMULIN R SLIDING SCALE, SINGULAIR 10MG PO HS, PROTONIX 40MG PO BID, MILK OF MAGNESIA 30ML PO BID, COLACE 100MG PO BID, THIAMINE 200MG IV BID, AND ZINC SULFATE 220MG PO BID. (2) Bilateral pulmonary embolism Status: Acute (3) Hypoxia Status: Acute (4) Hypokalemia Status: Acute
[2021-03-22] MEDS: ACCUNEB 1.25 MG NEBULE NEB SCH ×2 (14:10→21:43)
[2021-03-22] MEDS ORDERED: NS 250 ML IV 250 ML IV ONE (15:57)
[2021-03-22] MEDS ORDERED: ZITHROMAX INJ 500 MG VIAL IV ONE (15:57)
[2021-03-22] MEDS: ZITHROMAX INJ 500 MG VIAL 500 MG in NS 250 ML IV 250 ML IV SCH (16:01)
[2021-03-22] MEDS: SNACK - Diabetic Appropriate PO SCH (20:30)
[2021-03-22] MEDS: MELATONIN PO SCH (20:58)
[2021-03-22] MEDS: SINGULAIR TAB 10 MG PO SCH (20:59)
[2021-03-22] MEDS: LIPITOR TAB 80 MG PO SCH (21:02)
[2021-03-22] MEDS: REMDESIVIR 100 MG in NS 250 ML IV 250 ML IV SCH (21:45)
[2021-03-22] MEDS: IVERMECTIN PO SCH (22:28)
[2021-03-22] MEDS ORDERED: NS 1/2 1000 ML IV 1,000 ML IV ONE (22:35)
[2021-03-23 01:40] LABS: ABG ALLEN TEST POS
[2021-03-23] MEDS: NS 1/2 1000 ML IV 1,000 ML IV SCH ×2 (02:15→06:04)
[2021-03-23] MEDS: ASCORBIC ACID INJ MULTI-DOSE VIAL 1,500 MG in NS 50 ML IV 50 ML IV SCH ×2 (03:00→09:35)
[2021-03-23 04:59] LABS: ABG ALLEN TEST POS; ABG BASE EXCESS 12.1 mmol/L (-2.0-2.0); ABG HCO3 36.7 mmol/L (22-26)
[2021-03-23] MEDS: ACCUNEB 1.25 MG NEBULE NEB SCH (05:00)
[2021-03-23 05:27] LABS: BASOPHILS % (AUTO) 0.2 % (0.2-1.0); HEMATOCRIT 38.4 % (42.0-54.0); HEMOGLOBIN 13.4 g/dL (13.5-18.0); LYMPHOCYTES # (AUTO) 0.7 X10^3/uL (1.3-2.9); LYMPHOCYTES % (AUTO) 4.9 % (21.0-51.0); MEAN CORPUSCULAR HEMOGLOBIN 31.1 pg (27.0-34.0); MEAN CORPUSCULAR HGB CONC 34.8 g/dL (33.0-35.0); MEAN CORPUSCULAR VOLUME 89.5 fL (80.0-100.0); MEAN PLATELET VOLUME 10.2 fL (7.4-11.0); MONOCYTES # (AUTO) 0.8 x10^3/uL (0.3-0.8); MONOCYTES % (AUTO) 5.4 % (0.0-13.0); NEUTROPHILS % (AUTO) 89.5 % (42.0-75.0); PLATELET COUNT 227 X10^3/uL (150.0-450.0); RED BLOOD COUNT 4.29 X10^6/uL (4.7-6.0); RED CELL DISTRIBUTION WIDTH 12.8 % (11.6-16.5); WHITE BLOOD COUNT 14.6 X10^3/uL (3.6-10.0)
[2021-03-23 05:38] LABS: ALANINE AMINOTRANSFERASE 109 Units/L (12-78); ALBUMIN 2.4 g/dL (3.4-5.0); ALKALINE PHOSPHATASE 79 Units/L (46-116); ASPARTATE AMINO TRANSFERASE 36 Units/L (15-37); BLOOD UREA NITROGEN 11 mg/dL (7-18); CALCIUM 7.6 mg/dL (8.5-10.1); CARBON DIOXIDE 34.4 mmol/L (21-32); CHLORIDE 105 mmol/L (98-107); COR CA(FOR HYPOALB) 8.9 mg/dL (8.5-10.1); COR NA(FOR HYPERGLY) 148 mmol/L (136-145); CREATININE 0.75 mg/dL (0.70-1.30); SODIUM 145 mmol/L (136-145); TOTAL PROTEIN 5.7 g/dL (6.4-8.2); eGFR NON BLACK RACES > 60 (>60)
[2021-03-23] MEDS: K-DUR TAB 20 MEQ PO PRN ×2 (06:01→11:16)
[2021-03-23] MEDS: PERIACTIN TAB 4 MG PO SCH (06:01)
[2021-03-23] MEDS: TESSALON PERLES PO SCH (06:01)
[2021-03-23] MEDS: SOLU-Medrol 125 MG VIAL IVP SCH (06:05)
[2021-03-23 06:47] LABS: PLATELET MORPHOLOGY COMMENT NORMAL (NORMAL)
--- NOTE | 2021-03-23 08:16 | RAD ---
HISTORYSOBSTUDYCHEST, 1 [id number] cardiomediastinal silhouette is widened but stable. Similar bilateral airspace opacities. The bony thorax appears intact.IMPRESSIONNo significant change.Electronically signed by: LEIDY FUNG (Mar 23, 2021 08:14:37)
[2021-03-23] MEDS: AVODART PO SCH (09:35)
[2021-03-23] MEDS: FLUVOXAMINE MALEATE PO SCH (09:35)
[2021-03-23] MEDS: PEPCID TAB 40 MG PO SCH (09:35)
[2021-03-23] MEDS: ZyrTEC TAB 10 MG PO SCH (09:35)
[2021-03-23] MEDS: LEVAQUIN PREMIX IV 500 MG 500 MG/100 ML BAG IV SCH (09:35)
[2021-03-23] MEDS: ZINC SULFATE PO SCH (09:35)
[2021-03-23] MEDS: PROTONIX TAB 40 MG PO SCH (09:35)
[2021-03-23] MEDS: VITAMIN D3 125 mcg (5,000 UNITS) PO SCH (09:36)
[2021-03-23] MEDS: LOVENOX INJ 80 MG SYR SC SCH (09:57)
[2021-03-23] MEDS: THIAMINE HCL INJ IVP SCH (09:58)
[2021-03-23] MEDS: PULMICORT NEB TX 0.5 MG NEB SCH (10:00)
[2021-03-23 12:49] VITALS: BP 134/84
[2021-03-23 13:32] LABS: PROTEIN C ACTIVITY 130 % (83-168)
[2021-03-23 13:40] LABS: ANTI-NUCLEAR ANTIBODY TEST None Detected (None Detected)
[2021-03-23] MEDS ORDERED: COUMADIN TAB 5 MG (JANTOVEN) PO SCH (21:00)
[2021-03-27 06:48] LABS: REPTILASE TIME 16.4; THROMBIN TIME 22.5
[2021-03-27 06:49] LABS: PTT-D HEPARIN NEUT 63
[2021-03-28 06:28] LABS: PROTHROMBIN G20210A Negative
== END 2021-03-23 13:00 | disposition home or self-care (01) | DRG 177 ==
LOC: EDBD → ER 14:07 → OBS 19:49 → MED/SURG 03-22 17:18
PROVIDERS: ADMIT Internal Medicine; ATTEND Internal Medicine
DX: U07.1 COVID-19; R26.89 Other abnormalities of gait and mobility; J12.82 Pneumonia due to coronavirus disease 2019; R06.02 Shortness of breath; R94.31 Abnormal electrocardiogram [ECG] [EKG]; R42 Dizziness and giddiness; E87.6 Hypokalemia; I26.99 Other pulmonary embolism without acute cor pulmonale; R79.82 Elevated C-reactive protein (CRP); R79.1 Abnormal coagulation profile; R79.89 Other specified abnormal findings of blood chemistry